=== PATIENT | female | born 1950 | race African-American/Black ===

== ENCOUNTER 2017-04-20 13:31 | Inpatient (IN) | payer MEDICARE, MEDICAID ==
[~2017-04-20] VITALS: Ht 160 cm; Wt 42.6 kg
[~2017-04-20 13:31] MED LIST: ACET-3161 PO; ALBU4TAB6 INH; FLUT1DIS3 IH; ONDA4TAB5 PO; PANCREASE; PERIACTIN PO; TIOT18CA3; TIOT18CA3 IH
[2017-04-20] MEDS ORDERED: SODIUM CHLORIDE 0.9% 1,000 ML IV ONE (14:04)
[2017-04-20] MEDS ORDERED: MORPHINE SULFATE 4 MG/ML CPJ (NOT FOR IM USE) IV ONE (16:00)
[2017-04-20 16:17] LABS: BASOPHILS % 0.7 % (0.0-2.0); EOSINOPHILS % 0.3 % (0.0-5.0); HEMATOCRIT. 33.6 % (36.0-48.0); HEMOGLOBIN. 11.6 g/dL (12.0-16.0); LYMPHOCYTES % 16.6 % (20.0-50.0); MEAN CORPUSCULAR HEMOGLOBIN 35.2 pg (28.0-32.0); MEAN CORPUSCULAR VOLUME 102.4 fL (81.0-99.0); MEAN PLATELET VOLUME 7.7 fl (7.4-10.4); MONOCYTES % 11.3 % (2.0-8.0); NEUTROPHILS % 71.1 % (40.0-76.0); PLATELET 234 x1000/uL (130-400); RED BLOOD CELL COUNT 3.29 mill/uL (4.2-5.4); RED CELL DISTRIBUTION WIDTH 14.8 % (11.6-14.6)
[2017-04-20 17:05] LABS: CARBON DIOXIDE 26 mEq/L (21-32); CHLORIDE 97 mEq/L (98-107)
[2017-04-20] MEDS ORDERED: KETOROLAC 30MG/ML VIAL IV ONE (18:15)
[2017-04-20 21:17] VITALS: BP 135/97
[2017-04-20 22:00] VITALS: BP 141/95
[2017-04-20] MEDS ORDERED: CLONIDINE 0.1MG TABLET PO PRN (22:30)
[2017-04-20] MEDS: HYDROMORPHONE HCL/PF 2MG/ML CPJ IV PRN (22:39)
[2017-04-20] MEDS: ONDANSETRON HCL 4MG/2ML VIAL IV PRN (23:00)
[2017-04-20] MEDS ORDERED: DIPHENHYDRAMINE 50MG/ML VIAL IM PRN (23:15)
[2017-04-21] VITALS: BP 96/62
[2017-04-21 00:03] LABS: CREATINE KINASE 64 IU/L (26-192); CREATINE KINASE MB FRACTION 0.8 ng/mL (0.5-3.6); TROPONIN I < 0.02 ng/mL (0.00-0.04)
[2017-04-21] MEDS: HYDROMORPHONE HCL/PF 2MG/ML CPJ IV PRN ×6 (02:39→22:54)
[2017-04-21 04:00] VITALS: BP 100/77
[2017-04-21] MEDS: ONDANSETRON HCL 4MG/2ML VIAL IV PRN ×4 (05:53→22:54)
[2017-04-21 07:25] VITALS: BP 93/60
[2017-04-21 07:34] LABS: LDL CHOLESTEROL 110 mg/dL (5-100)
[2017-04-21 07:37] LABS: CREATINE KINASE 62 IU/L (26-192); CREATINE KINASE MB FRACTION 0.8 ng/mL (0.5-3.6); HDL CHOLESTEROL 109 mg/dL (40-59); TROPONIN I < 0.02 ng/mL (0.00-0.04)
[2017-04-21 11:21] VITALS: BP 120/81
[2017-04-21] MEDS: DIPHENHYDRAMINE 50MG/ML VIAL IV PRN ×2 (11:26→16:56)
[2017-04-21 15:45] VITALS: BP 109/64
[2017-04-21 20:00] VITALS: BP 108/60
[2017-04-22] VITALS: BP 113/62
[2017-04-22] MEDS: HYDROMORPHONE HCL/PF 2MG/ML CPJ IV PRN ×3 (03:20→11:38)
[2017-04-22 04:00] VITALS: BP 123/70
[2017-04-22] MEDS: DIPHENHYDRAMINE 50MG/ML VIAL IV PRN ×2 (04:20→10:15)
[2017-04-22 07:45] VITALS: BP 106/73
[2017-04-22 11:23] VITALS: BP 103/71
[2017-04-22 11:40] VITALS: BP 103/71
== END 2017-04-22 14:10 | disposition home or self-care (01) | DRG 74 ==
LOC: ER 13:47 → 6WST 18:02 → CANRESERV 18:39 → ENRESERV 18:39 → 6WST 21:05
PROVIDERS: ADMIT Hospitalist; ATTEND Hospitalist
DX: G90.8 Other disorders of autonomic nervous system (principal); J44.9 Chronic obstructive pulmonary disease, unspecified; G62.9 Polyneuropathy, unspecified; R55 Syncope and collapse; E78.00 Pure hypercholesterolemia, unspecified; I10 Essential (primary) hypertension; R07.9 Chest pain, unspecified; G89.4 Chronic pain syndrome; I25.10 Atherosclerotic heart disease of native coronary artery without angina pectoris; Z96.649 Presence of unspecified artificial hip joint; F17.200 Nicotine dependence, unspecified, uncomplicated; Z85.42 Personal history of malignant neoplasm of other parts of uterus; Z90.710 Acquired absence of both cervix and uterus; M94.0 Chondrocostal junction syndrome [Tietze]
CPT/HCPCS: 36415; 70450; 71010; 72125; 80053; 80061; 82550; 82553; 84484; 85025; 93005; 96374; 99285; J1170; J1200; J2270; J2405; J7030

== ENCOUNTER 2017-05-17 16:53 | Inpatient (IN) | payer MEDICARE, MEDICAID ==
[~2017-05-17] VITALS: Ht 160 cm; Wt 42.2 kg
[2017-05-17] MEDS ORDERED: SODIUM CHLORIDE 0.9% 1,000 ML IV ONE (18:20)
[2017-05-17] MEDS ORDERED: ONDANSETRON HCL 4MG/2ML VIAL IV STA (18:20)
[2017-05-17] MEDS ORDERED: NITROGLYCERIN 0.4MG TABLET SL SL PRN ×2 (18:30→23:00)
[2017-05-17] MEDS ORDERED: DIPHENHYDRAMINE 50MG/ML VIAL IV ONE (18:45)
[2017-05-17] MEDS ORDERED: MORPHINE SULFATE 4 MG/ML CPJ (NOT FOR IM USE) IV ONE ×2 (18:45→22:30)
[2017-05-17] MEDS ORDERED: METRONIDAZOLE 500 MG PREMIX 100 ML IV ONE (20:00)
[2017-05-17 20:07] LABS: BASOPHILS % 0.4 % (0.0-2.0); EOSINOPHILS % 0.6 % (0.0-5.0); HEMATOCRIT. 28.3 % (36.0-48.0); HEMOGLOBIN. 9.6 g/dL (12.0-16.0); LYMPHOCYTES % 19.8 % (20.0-50.0); MEAN CORPUSCULAR HEMOGLOBIN 34.4 pg (28.0-32.0); MEAN CORPUSCULAR VOLUME 101.6 fL (81.0-99.0); MEAN PLATELET VOLUME 7.4 fl (7.4-10.4); MONOCYTES % 9.9 % (2.0-8.0); NEUTROPHILS % 69.3 % (40.0-76.0); PLATELET 205 x1000/uL (130-400); RED BLOOD CELL COUNT 2.79 mill/uL (4.2-5.4); RED CELL DISTRIBUTION WIDTH 14.9 % (11.6-14.6)
[2017-05-17 20:15] LABS: PROTHROMBIN TIME 10.7 sec (9.4-11.6)
[2017-05-17 20:17] LABS: CHLORIDE 111 mEq/L (98-107)
[2017-05-17 20:20] LABS: PARTIAL THROMBOPLASTIN TIME < 20.0 sec (23.4-31.0)
[2017-05-17 20:25] LABS: CARBON DIOXIDE 24 mEq/L (21-32)
[2017-05-17 20:29] LABS: TROPONIN I < 0.02 ng/mL (0.00-0.04)
[2017-05-17] MEDS ORDERED: ASPIRIN 325MG EC TABLET PO ONE (22:15)
[2017-05-17] MEDS ORDERED: ONDANSETRON HCL 4MG/2ML VIAL IV PRN (23:00)
[2017-05-17] MEDS ORDERED: ACETAMINOPHEN 325MG TABLET PO PRN (23:00)
[2017-05-17] MEDS ORDERED: CLONIDINE 0.1MG TABLET PO PRN (23:00)
[2017-05-17] MEDS ORDERED: DOCUSATE SODIUM 100MG CAPSULE PO PRN (23:00)
[2017-05-17] MEDS ORDERED: LORAZEPAM 0.5MG TABLET PO PRN (23:00)
[2017-05-17] MEDS ORDERED: MAGNESIUM/ALUMINUM HYDROXIDE/SIMETHICONE 30ML UDC PO PRN (23:00)
[2017-05-17] MEDS ORDERED: TRAMADOL 50MG TABLET PO PRN (23:00)
[2017-05-17] MEDS ORDERED: GUAIFENESIN 200MG/10ML SUGAR FREE UDC PO PRN (23:00)
[2017-05-17] MEDS ORDERED: IOHEXOL-350 100 ML BOTTLE ONE (23:36)
[2017-05-18 00:23] VITALS: BP 125/75
[2017-05-18 00:30] VITALS: BP 125/75
[2017-05-18] MEDS ORDERED: ZOLPIDEM TARTRATE 5MG TABLET PO PRN (00:39)
[2017-05-18] MEDS ORDERED: NA PHOS,M-B/NA PHOS,DI-BA ENEMA 118ML PR PRN (00:40)
[2017-05-18] MEDS: IPRATROPIUM/ALBUTEROL 0.5-3(2.5)MG/3ML NEB INH PRN ×2 (02:04→06:21)
[2017-05-18] MEDS: DIPHENHYDRAMINE 50MG/ML VIAL IV PRN ×2 (03:06→10:25)
[2017-05-18] MEDS: MORPHINE SULFATE 4 MG/ML CPJ (NOT FOR IM USE) IV PRN ×2 (03:17→10:02)
[2017-05-18 04:00] VITALS: BP 117/60
[2017-05-18 08:00] VITALS: BP 125/77
[2017-05-18] MEDS ORDERED: FAMOTIDINE 20MG/2ML VIAL IV SCH (09:00)
[2017-05-18] MEDS ORDERED: ASPIRIN 325MG EC TABLET PO SCH (09:00)
[2017-05-18] MEDS ORDERED: ENOXAPARIN 40MG/0.4ML SYR SUBCUT SCH (09:00)
[2017-05-18] MEDS ORDERED: METOPROLOL TARTRATE 25MG TABLET PO SCH (09:00)
[2017-05-18 10:10] LABS: CREATINE KINASE 58 IU/L (26-192); CREATINE KINASE MB FRACTION 0.7 ng/mL (0.5-3.6); TROPONIN I < 0.02 ng/mL (0.00-0.04)
[2017-05-18 11:31] VITALS: BP 128/77
== END 2017-05-18 13:50 | disposition home or self-care (01) | DRG 313 ==
LOC: ER 16:53 → EDBEDREQ 18:31 → ENRESERV 21:05 → SUPCPDRO 22:54 → 5WST 22:58 → EDBEDREQ 23:00 → EDBEDREQTM 23:00
PROVIDERS: ADMIT Internal Medicine; ATTEND Internal Medicine
DX: R07.89 Other chest pain (principal); I25.10 Atherosclerotic heart disease of native coronary artery without angina pectoris; E44.0 Moderate protein-calorie malnutrition; J44.9 Chronic obstructive pulmonary disease, unspecified; Z68.1 Body mass index [BMI] 19.9 or less, adult; D63.8 Anemia in other chronic diseases classified elsewhere; E78.00 Pure hypercholesterolemia, unspecified; Z96.649 Presence of unspecified artificial hip joint; I10 Essential (primary) hypertension; Z85.41 Personal history of malignant neoplasm of cervix uteri; Z86.718 Personal history of other venous thrombosis and embolism; Z88.5 Allergy status to narcotic agent; Z90.710 Acquired absence of both cervix and uterus; Z88.8 Allergy status to other drugs, medicaments and biological substances
CPT/HCPCS: 36415; 71045; 71275; 74176; 80053; 80061; 82550; 82553; 83036; 83690; 83880; 84484; 85025; 85610; 85730; 87015; 87045; 87427; 87449; 87493; 87804; 93005; 93970; 94640; 94664; 96365; 96375; 99285; J1200; J1650; J2270; J2405; J3490; J7030; J7620; Q9967

== ENCOUNTER 2018-04-22 08:32 | Inpatient (IN) | payer MEDICARE, MEDICAID ==
[~2018-04-22] VITALS: Ht 160 cm; Wt 45.4 kg
[2018-04-22] MEDS ORDERED: ONDANSETRON HCL 4MG/2ML INJ IV STA (09:21)
[2018-04-22] MEDS ORDERED: SODIUM CHLORIDE 0.9% 1,000 ML IV ONE (09:21)
[2018-04-22] MEDS ORDERED: METHYLPREDNISOLONE SOD SUCC 125 MG/2 ML VIAL IV STA (09:21)
[2018-04-22] MEDS ORDERED: IPRATROPIUM/ALBUTEROL 0.5-3(2.5)MG/3ML NEB HHN ONE (09:30)
[2018-04-22] MEDS ORDERED: MORPHINE SULFATE 10 MG/ML CPJ IV ONE (09:30)
[2018-04-22] MEDS ORDERED: LIDOCAINE HCL 1% 20ML VIAL (Pyxis) INJ ONE (11:09)
[2018-04-22 12:09] LABS: BASOPHILS % 0.5 % (0.0-2.0); EOSINOPHILS % 0.3 % (0.0-5.0); HEMATOCRIT. 36.1 % (36.0-48.0); HEMOGLOBIN. 12.2 g/dL (12.0-16.0); LYMPHOCYTES % 19.8 % (20.0-50.0); MEAN PLATELET VOLUME 7.5 fl (7.4-10.4); MONOCYTES % 9.2 % (2.0-8.0); NEUTROPHILS % 70.2 % (40.0-76.0); PLATELET 230 x1000/uL (130-400); RED BLOOD CELL COUNT 3.47 mill/uL (4.2-5.4); RED CELL DISTRIBUTION WIDTH 14.3 % (11.6-14.6)
[2018-04-22 12:12] LABS: CHLORIDE 102 mEq/L (98-107)
[2018-04-22 12:14] LABS: INR 1.1; PARTIAL THROMBOPLASTIN TIME 24.3 sec (23.4-31.0); PROTHROMBIN TIME 10.9 sec (9.1-11.1)
[2018-04-22 12:17] LABS: ETHANOL BLOOD < 10 mg/dL
[2018-04-22 13:27] LABS: CLARITY URINE CLOUDY (CLEAR); COLOR URINE YELLOW (YELLOW); KETONES URINE 2+ (NEGATIVE); LEUKOCYTE ESTERASE URINE 1+ (NEGATIVE); NITRITE URINE NEGATIVE (NEGATIVE); OCCULT BLOOD URINE 1+ (NEGATIVE); PROTEIN URINE 2+ (NEGATIVE); SPECIFIC GRAVITY URINE 1.016 (1.005-1.030); UROBILINOGEN URINE 0.2 E.U./dL (0.2-1.0)
[2018-04-22] MEDS ORDERED: ASPIRIN 81MG TABLET PO ONE (13:30)
[2018-04-22 13:44] LABS: METHADONE URINE SCREEN NEGATIVE (NEGATIVE); OPIATES URINE SCREEN PRESUMTIVE POSITIVE (NEGATIVE); PHENCYCLIDINE URINE SCREEN NEGATIVE (NEGATIVE)
[2018-04-22 13:45] LABS: *AMPHETAMINES SCREEN URINE NEGATIVE (NEGATIVE); *BARBITURATES SCREEN URINE NEGATIVE (NEGATIVE); *BENZODIAZEPINES SCREEN URINE NEGATIVE (NEGATIVE); *COCAINE SCREEN URINE NEGATIVE (NEGATIVE); CANNABINOID URINE SCREEN NEGATIVE (NEGATIVE)
[2018-04-22] MEDS ORDERED: IOHEXOL-350 100 ML BOTTLE ONE (15:01)
[2018-04-22] MEDS ORDERED: DOCUSATE SODIUM 100MG CAPSULE PO PRN (17:30)
[2018-04-22] MEDS ORDERED: MAGNESIUM/ALUMINUM HYDROXIDE/SIMETHICONE 30ML UDC PO PRN (17:30)
[2018-04-22] MEDS ORDERED: IPRATROPIUM/ALBUTEROL 0.5-3(2.5)MG/3ML NEB INH PRN (17:30)
[2018-04-22] MEDS ORDERED: ACETAMINOPHEN 325MG TABLET PO PRN (17:30)
[2018-04-22] MEDS ORDERED: NA PHOS,M-B/NA PHOS,DI-BA ENEMA 118ML PR PRN (17:30)
[2018-04-22] MEDS ORDERED: GUAIFENESIN 200MG/10ML SUGAR FREE UDC PO PRN (17:30)
[2018-04-22] MEDS ORDERED: CLONIDINE 0.1MG TABLET PO PRN (17:30)
[2018-04-22] MEDS ORDERED: ACETAMINOPHEN 650MG SUPP PR PRN (17:30)
[2018-04-22] MEDS ORDERED: DEXTROSE 50% WATER 50ML SYRINGE IV PRN ×2 (17:30→23:30)
[2018-04-22] MEDS ORDERED: LORAZEPAM 0.5MG TABLET PO PRN (17:30)
[2018-04-22 23:00] VITALS: BP 108/61
[2018-04-22] MEDS: BLOOD SUGAR DIAGNOSTIC STRIP TEST SCH (23:00)
[2018-04-23] VITALS (7 sets, daily range): BP systolic 96–113; BP diastolic 60–75
[2018-04-23] MEDS ORDERED: LEVOFLOXACIN 500MG PREMIX 100 ML IV SCH
[2018-04-23] MEDS: ONDANSETRON HCL 4MG/2ML INJ IV PRN ×2 (00:47→16:38)
[2018-04-23] MEDS: KETOROLAC 15MG/ML VIAL IV PRN ×2 (00:48→08:04)
[2018-04-23] MEDS: METRONIDAZOLE 500MG TABLET PO SCH ×4 (00:50→21:00)
[2018-04-23] MEDS: NICOTINE 21MG PATCH TD SCH (00:51)
[2018-04-23] MEDS: INSULIN LISPRO 100 UNITS/ML SUBCUT SCH ×5 (00:52→21:00)
[2018-04-23] MEDS: DIPHENHYDRAMINE 50MG/ML VIAL IV PRN ×5 (01:21→21:07)
[2018-04-23 02:10] LABS: CREATINE KINASE 98 IU/L (26-192)
[2018-04-23 02:11] LABS: CREATINE KINASE MB FRACTION 2.7 ng/mL (0.5-3.6)
[2018-04-23] MEDS: IPRATROPIUM/ALBUTEROL 0.5-3(2.5)MG/3ML NEB HHN SCH ×6 (04:28→23:40)
[2018-04-23 05:53] LABS: BASOPHILS % 0.1 % (0.0-2.0); HEMATOCRIT. 34.9 % (36.0-48.0); HEMOGLOBIN. 11.8 g/dL (12.0-16.0); LYMPHOCYTES % 10.7 % (20.0-50.0); MEAN CORPUSCULAR HEMOGLOBIN 35.4 pg (28.0-32.0); MEAN CORPUSCULAR VOLUME 104.2 fL (81.0-99.0); MEAN PLATELET VOLUME 8.3 fl (7.4-10.4); NEUTROPHILS % 77.2 % (40.0-76.0); PLATELET 215 x1000/uL (130-400); RED BLOOD CELL COUNT 3.35 mill/uL (4.2-5.4); RED CELL DISTRIBUTION WIDTH 14.3 % (11.6-14.6)
[2018-04-23] MEDS: BLOOD SUGAR DIAGNOSTIC STRIP TEST SCH ×4 (06:08→21:08)
[2018-04-23 06:52] LABS: CHLORIDE 102 mEq/L (98-107)
[2018-04-23 07:06] LABS: LDL CHOLESTEROL 93 mg/dL (5-100)
[2018-04-23 07:08] LABS: CREATINE KINASE 132 IU/L (26-192); CREATINE KINASE MB FRACTION 3.5 ng/mL (0.5-3.6)
[2018-04-23 07:09] LABS: HDL CHOLESTEROL 120 mg/dL (40-59); T4 FREE 0.86 ng/dL (0.76-1.46)
[2018-04-23] MEDS ORDERED: ENOXAPARIN 40MG/0.4ML SYR SUBCUT SCH (09:00)
[2018-04-23] MEDS: ASPIRIN 81MG EC TABLET PO SCH (09:19)
[2018-04-23] MEDS: BUDESONIDE 0.5MG/2ML NEB HHN SCH ×2 (13:15→20:11)
[2018-04-23] MEDS ORDERED: MORPHINE SULFATE 2 MG/ML CPJ (NOT FOR IM USE) IV PRN (15:44)
[2018-04-23] MEDS ORDERED: MORPHINE SULFATE 10MG/5ML ORAL SOLN UDC PO PRN (16:00)
[2018-04-23] MEDS: HYDROMORPHONE HCL/PF 2MG/ML CPJ IV PRN ×2 (16:38→20:57)
[2018-04-24] VITALS (7 sets, daily range): BP systolic 87–134; BP diastolic 56–104
[2018-04-24] MEDS ORDERED: LEVOFLOXACIN 250MG PREMIX 50 ML IV SCH
[2018-04-24] MEDS: NICOTINE 21MG PATCH TD SCH ×2 (00:23→23:17)
[2018-04-24] MEDS: ONDANSETRON HCL 4MG/2ML INJ IV PRN ×2 (03:22→18:20)
[2018-04-24] MEDS: HYDROMORPHONE HCL/PF 2MG/ML CPJ IV PRN ×5 (03:22→22:41)
[2018-04-24] MEDS: DIPHENHYDRAMINE 50MG/ML VIAL IV PRN ×5 (03:32→22:40)
[2018-04-24] MEDS: IPRATROPIUM/ALBUTEROL 0.5-3(2.5)MG/3ML NEB HHN SCH ×6 (04:02→23:37)
[2018-04-24] MEDS: METRONIDAZOLE 500MG TABLET PO SCH ×3 (06:16→22:19)
[2018-04-24] MEDS: BLOOD SUGAR DIAGNOSTIC STRIP TEST SCH ×4 (06:26→21:35)
[2018-04-24] MEDS: INSULIN LISPRO 100 UNITS/ML SUBCUT SCH ×4 (06:27→21:00)
[2018-04-24] MEDS: BUDESONIDE 0.5MG/2ML NEB HHN SCH ×2 (08:00→20:12)
[2018-04-24] MEDS: ENOXAPARIN 30MG/0.3ML SYR SUBCUT SCH (08:31)
[2018-04-24] MEDS: ASPIRIN 81MG EC TABLET PO SCH (08:31)
[2018-04-24] MEDS ORDERED: LORAZEPAM 1MG TABLET PO PRN (17:30)
[2018-04-24] MEDS ORDERED: VANCOMYCIN HCL 1 GM/VIAL PO SCH (18:00)
[2018-04-24] MEDS: VANCOMYCIN HCL 1000 MG/20 ML ORAL PO SCH ×2 (18:19→23:17)
[2018-04-24] MEDS ORDERED: DEXT 5%/0.45% NACL 1000ML 1,000 ML IV SCH (20:45)
[2018-04-24 20:55] LABS: HEMATOCRIT 30.3 % (36.0-48.0); HEMOGLOBIN 10.1 g/dL (12.0-16.0); MEAN CORPUSCULAR HEMOGLOBIN 34.9 pg (28.0-32.0); PLATELET 178 x1000/uL (130-400); RED BLOOD CELL COUNT 2.89 mill/uL (4.2-5.4); RED CELL DISTRIBUTION WIDTH 14.3 % (11.6-14.6)
[2018-04-24 21:02] LABS: CHLORIDE 102 mEq/L (98-107)
[2018-04-25] VITALS: BP 118/68
[2018-04-25] MEDS: DIPHENHYDRAMINE 50MG/ML VIAL IV PRN ×4 (03:29→17:19)
[2018-04-25] MEDS: ONDANSETRON HCL 4MG/2ML INJ IV PRN ×2 (03:29→13:05)
[2018-04-25] MEDS: HYDROMORPHONE HCL/PF 2MG/ML CPJ IV PRN ×4 (03:30→17:20)
[2018-04-25 04:00] VITALS: BP 131/46
[2018-04-25] MEDS: IPRATROPIUM/ALBUTEROL 0.5-3(2.5)MG/3ML NEB HHN SCH ×4 (05:22→15:36)
[2018-04-25] MEDS: INSULIN LISPRO 100 UNITS/ML SUBCUT SCH ×3 (05:51→17:15)
[2018-04-25] MEDS: BLOOD SUGAR DIAGNOSTIC STRIP TEST SCH ×3 (05:51→16:45)
[2018-04-25] MEDS: VANCOMYCIN HCL 1000 MG/20 ML ORAL PO SCH ×3 (06:00→18:00)
[2018-04-25] MEDS: METRONIDAZOLE 500MG TABLET PO SCH ×2 (06:00→13:16)
[2018-04-25] MEDS: BUDESONIDE 0.5MG/2ML NEB HHN SCH (07:54)
[2018-04-25 08:00] VITALS: BP 95/57
[2018-04-25] MEDS: ASPIRIN 81MG EC TABLET PO SCH (08:53)
[2018-04-25] MEDS: ENOXAPARIN 30MG/0.3ML SYR SUBCUT SCH (08:54)
[2018-04-25 12:00] VITALS: BP 93/59
[2018-04-25] MEDS ORDERED: SIMETHICONE 80MG TABLET CHEW PO PRN (14:45)
[2018-04-25 16:00] VITALS: BP 94/53
[2018-04-25 17:54] VITALS: BP 103/56
== END 2018-04-25 18:47 | disposition home or self-care (01) | DRG 371 ==
LOC: ER 08:32 → 5WST 09:25 → EDBEDREQ 13:50 → ENRESERV 19:39
PROVIDERS: ADMIT Internal Medicine; ATTEND Internal Medicine
PROC: B54MZZA Ultrasonography of Right Upper Extremity Veins, Guidance (ICD-10-PCS; principal; 2018-04-22)
PROC: 05HY33Z Insertion of Infusion Device into Upper Vein, Percutaneous Approach (ICD-10-PCS; 2018-04-22)
DX: A04.72 Enterocolitis due to Clostridium difficile, not specified as recurrent (principal); I50.33 Acute on chronic diastolic (congestive) heart failure; N39.0 Urinary tract infection, site not specified; I31.3 Pericardial effusion (noninflammatory); M94.0 Chondrocostal junction syndrome [Tietze]; E16.2 Hypoglycemia, unspecified; E78.00 Pure hypercholesterolemia, unspecified; F17.210 Nicotine dependence, cigarettes, uncomplicated; F41.9 Anxiety disorder, unspecified; J43.9 Emphysema, unspecified; I70.0 Atherosclerosis of aorta; E27.8 Other specified disorders of adrenal gland; N28.1 Cyst of kidney, acquired; E05.10 Thyrotoxicosis with toxic single thyroid nodule without thyrotoxic crisis or storm; G89.29 Other chronic pain; I27.21 Secondary pulmonary arterial hypertension; K76.0 Fatty (change of) liver, not elsewhere classified; M85.80 Other specified disorders of bone density and structure, unspecified site; Z96.643 Presence of artificial hip joint, bilateral; Z60.2 Problems related to living alone; Z53.29 Procedure and treatment not carried out because of patient's decision for other reasons; Z86.718 Personal history of other venous thrombosis and embolism; Z90.710 Acquired absence of both cervix and uterus; Z88.6 Allergy status to analgesic agent; Z88.8 Allergy status to other drugs, medicaments and biological substances; Z79.899 Other long term (current) drug therapy; Z85.9 Personal history of malignant neoplasm, unspecified; Z71.6 Tobacco abuse counseling
CPT/HCPCS: 36415; 36569; 71045; 71275; 73521; 74018; 76700; 76937; 78582; 80048; 80061; 80305; 82550; 82553; 82962; 83036; 83880; 84439; 84443; 84484; 85027; 87015; 87045; 87427; 87449; 87493; 93005; 93970; 94640; 96361; 96374; 96375; 97161; 99285; A9558; C1725; C1769; C1892; G0482; J1170; J1200; J1650; J1815; J1885; J1956; J2270; J2405; J2930; J3370; J3490; J7030; J7050; J7620; J7626; Q9967

== ENCOUNTER 2018-05-23 15:06 | Inpatient (IN) | payer MEDICARE, MEDICAID ==
[~2018-05-23] VITALS: Ht 157.5 cm; Wt 44.9 kg
[2018-05-23] MEDS ORDERED: SODIUM CHLORIDE 0.9% 500 ML IV ONE (21:22)
[2018-05-23] MEDS ORDERED: ONDANSETRON HCL 4MG/2ML INJ IV STA (21:22)
[2018-05-23] MEDS ORDERED: NITROGLYCERIN 0.4MG TABLET SL SL ONE (22:45)
[2018-05-24 00:08] LABS: EOSINOPHILS % 1.5 % (0.0-5.0); HEMATOCRIT. 34.6 % (36.0-48.0); HEMOGLOBIN. 11.4 g/dL (12.0-16.0); LYMPHOCYTES % 34.8 % (20.0-50.0); MEAN CORPUSCULAR HEMOGLOBIN 34.2 pg (28.0-32.0); MEAN CORPUSCULAR VOLUME 103.9 fL (81.0-99.0); MEAN PLATELET VOLUME 7.2 fl (7.4-10.4); MONOCYTES % 10.8 % (2.0-8.0); NEUTROPHILS % 51.9 % (40.0-76.0); PLATELET 276 x1000/uL (130-400); RED BLOOD CELL COUNT 3.33 mill/uL (4.2-5.4); RED CELL DISTRIBUTION WIDTH 15.2 % (11.6-14.6)
[2018-05-24 00:11] LABS: CHLORIDE 105 mEq/L (98-107)
[2018-05-24 00:16] LABS: INR 1.1; PROTHROMBIN TIME 10.7 sec (9.1-11.1)
[2018-05-24] MEDS ORDERED: LORAZEPAM 1MG TABLET PO NR (03:15)
[2018-05-24] MEDS ORDERED: KETOROLAC 15MG/ML VIAL IV NR (04:15)
[2018-05-24 08:45] VITALS: BP 130/90
[2018-05-24] MEDS ORDERED: HYDROCODONE/ACETAMINOPHEN 5/325MG TABLET PO PRN (10:30)
[2018-05-24] MEDS ORDERED: NITROGLYCERIN 0.4MG TABLET SL SL PRN (12:00)
[2018-05-24] MEDS ORDERED: MORPHINE SULFATE 4 MG/ML CPJ (NOT FOR IM USE) IV PRN ×2 (12:30→12:45)
[2018-05-24 14:00] VITALS: BP 129/75
[2018-05-24] MEDS ORDERED: BUDE6HFA INH (15:16)
[2018-05-24] MEDS ORDERED: ALBU05 NEB (15:16)
[2018-05-24 16:00] VITALS: BP 129/75
[2018-05-24] MEDS ORDERED: HYDROCODONE/ACETAMINOPHEN 10/325MG TABLET PO PRN (16:30)
[2018-05-24] MEDS: ONDANSETRON HCL 4MG/2ML INJ IV PRN ×2 (17:50→22:10)
[2018-05-24] MEDS: HYDROMORPHONE HCL/PF 2MG/ML CPJ IV PRN ×2 (17:50→22:10)
[2018-05-24] MEDS: DIPHENHYDRAMINE 50MG/ML VIAL IM PRN (19:58)
[2018-05-24] MEDS: CARVEDILOL 3.125 MG TABLET PO SCH (19:59)
[2018-05-25] VITALS: BP_SYST 103; BP_SYST 108; BP_DIAS 60; BP_DIAS 73
[2018-05-25] MEDS: ONDANSETRON HCL 4MG/2ML INJ IV PRN ×5 (02:17→21:20)
[2018-05-25] MEDS: HYDROMORPHONE HCL/PF 2MG/ML CPJ IV PRN ×5 (02:24→21:21)
[2018-05-25] MEDS: DIPHENHYDRAMINE 50MG/ML VIAL IM PRN (02:29)
[2018-05-25 04:00] VITALS: BP 108/73
[2018-05-25 08:00] VITALS: BP 109/79
[2018-05-25] MEDS: ASPIRIN 81MG EC TABLET PO SCH (08:22)
[2018-05-25] MEDS: ENOXAPARIN 30MG/0.3ML SYR SUBCUT SCH (08:24)
[2018-05-25] MEDS: CARVEDILOL 3.125 MG TABLET PO SCH ×2 (09:00→21:00)
[2018-05-25] MEDS ORDERED: ENOXAPARIN 40MG/0.4ML SYR SUBCUT SCH (09:00)
[2018-05-25] MEDS: DIPHENHYDRAMINE 50MG/ML VIAL IV PRN ×2 (10:43→19:33)
[2018-05-25 12:43] VITALS: BP 102/65
[2018-05-25 15:54] VITALS: BP 129/66
[2018-05-25 18:10] LABS: HEMATOCRIT 34.9 % (36.0-48.0); HEMOGLOBIN 11.7 g/dL (12.0-16.0); MEAN CORPUSCULAR HEMOGLOBIN 34.1 pg (28.0-32.0); MEAN CORPUSCULAR VOLUME 101.8 fL (81.0-99.0); PLATELET 294 x1000/uL (130-400); RED BLOOD CELL COUNT 3.43 mill/uL (4.2-5.4); RED CELL DISTRIBUTION WIDTH 14.6 % (11.6-14.6)
[2018-05-25 18:12] LABS: CHLORIDE 101 mEq/L (98-107)
[2018-05-25 20:00] VITALS: BP 97/67
[2018-05-26] VITALS (7 sets, daily range): BP systolic 92–132; BP diastolic 60–91
[2018-05-26] MEDS: DIPHENHYDRAMINE 50MG/ML VIAL IV PRN ×3 (01:16→14:34)
[2018-05-26] MEDS: ONDANSETRON HCL 4MG/2ML INJ IV PRN ×4 (01:53→13:18)
[2018-05-26] MEDS: HYDROMORPHONE HCL/PF 2MG/ML CPJ IV PRN ×5 (01:54→17:56)
[2018-05-26] MEDS: ASPIRIN 81MG EC TABLET PO SCH (08:47)
[2018-05-26] MEDS: ENOXAPARIN 30MG/0.3ML SYR SUBCUT SCH (08:49)
[2018-05-26] MEDS: CARVEDILOL 3.125 MG TABLET PO SCH (09:00)
== END 2018-05-26 19:15 | disposition home or self-care (01) | DRG 206 ==
LOC: ER 15:06 → 7WST 05-24 04:04 → ENRESERV 05-24 07:59 → 7WST 05-25 02:07
PROVIDERS: ADMIT Internal Medicine; ATTEND Internal Medicine
DX: M94.0 Chondrocostal junction syndrome [Tietze] (principal); E78.00 Pure hypercholesterolemia, unspecified; F17.200 Nicotine dependence, unspecified, uncomplicated; F41.9 Anxiety disorder, unspecified; G89.29 Other chronic pain; J44.9 Chronic obstructive pulmonary disease, unspecified; Z96.649 Presence of unspecified artificial hip joint; M19.90 Unspecified osteoarthritis, unspecified site; Z90.710 Acquired absence of both cervix and uterus; W18.39XA Other fall on same level, initial encounter; Z86.718 Personal history of other venous thrombosis and embolism; Z88.5 Allergy status to narcotic agent; Z80.8 Family history of malignant neoplasm of other organs or systems; Y93.A3 Activity, aerobic and step exercise; Y92.89 Other specified places as the place of occurrence of the external cause; Y99.8 Other external cause status
CPT/HCPCS: 36415; 71045; 71111; 73523; 78582; 80048; 83880; 84443; 84484; 85027; 93005; 93306; 93970; 96374; 99285; A9558; J1170; J1200; J1650; J1885; J2405; J7040

== ENCOUNTER 2018-08-10 07:37 | Emergency (ER) | payer MEDICARE, MEDICAID ==
[~2018-08-10] VITALS: Ht 160 cm; Wt 42.0 kg
[~2018-08-10 07:37] MED LIST changes: -ACET-3161 PO; +ALBU05 NEB; -ALBU4TAB6 INH; +BUDE6HFA INH; -FLUT1DIS3 IH; -ONDA4TAB5 PO; -PANCREASE; -PERIACTIN PO; -TIOT18CA3; -TIOT18CA3 IH
[2018-08-10] MEDS ORDERED: KETOROLAC 30MG/ML VIAL IV STA (08:23)
[2018-08-10] MEDS ORDERED: SODIUM CHLORIDE 0.9% 1,000 ML IV ONE (08:23)
[2018-08-10 08:58] LABS: BASOPHILS % 0.3 % (0.0-2.0); EOSINOPHILS % 0.2 % (0.0-5.0); HEMATOCRIT. 37.4 % (36.0-48.0); HEMOGLOBIN. 12.4 g/dL (12.0-16.0); LYMPHOCYTES % 26.6 % (20.0-50.0); MEAN CORPUSCULAR HEMOGLOBIN 34.1 pg (28.0-32.0); MEAN PLATELET VOLUME 6.9 fl (7.4-10.4); MONOCYTES % 6.8 % (2.0-8.0); NEUTROPHILS % 66.1 % (40.0-76.0); PLATELET 235 x1000/uL (130-400); RED BLOOD CELL COUNT 3.63 mill/uL (4.2-5.4); RED CELL DISTRIBUTION WIDTH 17.3 % (11.6-14.6)
[2018-08-10 09:03] LABS: CHLORIDE 112 mEq/L (98-107); PARTIAL THROMBOPLASTIN TIME 23.8 sec (23.4-31.0); PROTHROMBIN TIME 10.4 sec (9.6-11.0)
[2018-08-10 09:08] LABS: ETHANOL BLOOD < 10 mg/dL
[2018-08-10 10:25] VITALS: BP 120/75
== END 2018-08-10 10:50 | disposition home or self-care (01) ==
LOC: ER 07:37
DX: R07.89 Other chest pain (principal); K62.5 Hemorrhage of anus and rectum; K64.4 Residual hemorrhoidal skin tags; F17.200 Nicotine dependence, unspecified, uncomplicated; Z96.649 Presence of unspecified artificial hip joint; Z90.710 Acquired absence of both cervix and uterus; Z98.890 Other specified postprocedural states; Z88.6 Allergy status to analgesic agent; Z88.1 Allergy status to other antibiotic agents; Z88.8 Allergy status to other drugs, medicaments and biological substances; Z79.899 Other long term (current) drug therapy
CPT/HCPCS: 36415; 71045; 80053; 80307; 80320; 80329; 83690; 83880; 84484; 85025; 85610; 85730; 93005; 99284; J1885; J7030; G0480

== ENCOUNTER 2018-09-23 07:40 | Inpatient (IN) | payer MEDICARE, MEDICAID ==
[~2018-09-23] VITALS: Ht 152.9 cm; Wt 44.9 kg
[2018-09-23] MEDS ORDERED: NITROGLYCERIN OINT 1GM/INCH UDPKT TD ONE (08:45)
[2018-09-23] MEDS ORDERED: ASPIRIN 325MG EC TABLET PO ONE (08:45)
[2018-09-23 09:01] LABS: BASOPHILS % 0.7 % (0.0-2.0); EOSINOPHILS % 0.6 % (0.0-5.0); HEMATOCRIT. 33.5 % (36.0-48.0); HEMOGLOBIN. 11.3 g/dL (12.0-16.0); LYMPHOCYTES % 24.8 % (20.0-50.0); MEAN CORPUSCULAR HEMOGLOBIN 34.7 pg (28.0-32.0); MEAN CORPUSCULAR VOLUME 102.9 fL (81.0-99.0); MEAN PLATELET VOLUME 7.4 fl (7.4-10.4); MONOCYTES % 7.2 % (2.0-8.0); NEUTROPHILS % 66.7 % (40.0-76.0); PLATELET 292 x1000/uL (130-400); RED BLOOD CELL COUNT 3.26 mill/uL (4.2-5.4); RED CELL DISTRIBUTION WIDTH 15.7 % (11.6-14.6)
[2018-09-23 09:06] LABS: CHLORIDE 108 mEq/L (98-107)
[2018-09-23 09:10] LABS: D-DIMER 0.94 mg/L FEU (<0.50)
[2018-09-23] MEDS ORDERED: IOHEXOL-350 100 ML BOTTLE ONE (09:46)
[2018-09-23] MEDS ORDERED: ACETAMINOPHEN 325MG TABLET PO PRN (16:00)
[2018-09-23] MEDS ORDERED: GUAIFENESIN 200MG/10ML SUGAR FREE UDC PO PRN (16:00)
[2018-09-23] MEDS ORDERED: IPRATROPIUM/ALBUTEROL 0.5-3(2.5)MG/3ML NEB INH PRN (16:00)
[2018-09-23] MEDS ORDERED: MAGNESIUM HYDROXIDE 400MG/5ML 30ML UDC PO PRN (16:00)
[2018-09-23] MEDS ORDERED: LORAZEPAM 0.5MG TABLET PO PRN (16:00)
[2018-09-23] MEDS ORDERED: KETOROLAC 30MG/ML VIAL IV PRN (16:11)
[2018-09-23 16:54] LABS: CANNABINOID URINE SCREEN NEGATIVE (NEGATIVE)
[2018-09-23 16:55] LABS: *AMPHETAMINES SCREEN URINE NEGATIVE (NEGATIVE); *BARBITURATES SCREEN URINE NEGATIVE (NEGATIVE); *BENZODIAZEPINES SCREEN URINE NEGATIVE (NEGATIVE); *COCAINE SCREEN URINE NEGATIVE (NEGATIVE); METHADONE URINE SCREEN NEGATIVE (NEGATIVE); OPIATES URINE SCREEN PRESUMTIVE POSITIVE (NEGATIVE); PHENCYCLIDINE URINE SCREEN NEGATIVE (NEGATIVE)
[2018-09-23 18:00] VITALS: BP 118/83
[2018-09-23] MEDS ORDERED: ENOXAPARIN 30MG/0.3ML SYR SUBCUT SCH (18:00)
[2018-09-23 19:03] VITALS: BP 118/83
[2018-09-23] MEDS ORDERED: TEMAZEPAM 15MG CAPSULE PO PRN (21:00)
[2018-09-23] MEDS ORDERED: FAMOTIDINE 20MG TABLET PO SCH (21:00)
[2018-09-23] MEDS: SODIUM CHLORIDE 0.9% INJ 3ML FLUSH IVF SCH (21:37)
[2018-09-23] MEDS: DIPHENHYDRAMINE 50MG/ML VIAL IV PRN (22:01)
[2018-09-23] MEDS ORDERED: TYLENOL CODEINE PO (23:08)
[2018-09-24] MEDS: BUDESONIDE 0.5MG/2ML NEB HHN SCH ×3 (01:23→20:38)
[2018-09-24] MEDS: IPRATROPIUM/ALBUTEROL 0.5-3(2.5)MG/3ML NEB HHN SCH ×6 (01:24→20:37)
[2018-09-24 04:00] VITALS: BP 110/81
[2018-09-24] MEDS: DIPHENHYDRAMINE 50MG/ML VIAL IV PRN ×4 (04:05→20:28)
[2018-09-24] MEDS: SODIUM CHLORIDE 0.9% INJ 3ML FLUSH IVF SCH ×3 (05:19→21:19)
[2018-09-24] MEDS ORDERED: ASPIRIN 81MG EC TABLET PO SCH (09:00)
[2018-09-24 09:30] VITALS: BP 96/56
[2018-09-24] MEDS: ONDANSETRON HCL 4MG/2ML INJ IV PRN ×3 (11:25→20:00)
[2018-09-24 11:58] VITALS: BP 110/77
[2018-09-24] MEDS: HYDROMORPHONE HCL/PF 2MG/ML CPJ IV PRN ×3 (12:03→20:01)
[2018-09-24 12:33] VITALS: BP 107/77
[2018-09-24 15:58] LABS: BASOPHILS % 0.9 % (0.0-2.0); EOSINOPHILS % 0.5 % (0.0-5.0); HEMATOCRIT. 33.6 % (36.0-48.0); HEMOGLOBIN. 11.1 g/dL (12.0-16.0); LYMPHOCYTES % 27.7 % (20.0-50.0); MEAN CORPUSCULAR HEMOGLOBIN 34.8 pg (28.0-32.0); MEAN CORPUSCULAR VOLUME 104.9 fL (81.0-99.0); MEAN PLATELET VOLUME 7.8 fl (7.4-10.4); MONOCYTES % 8.6 % (2.0-8.0); NEUTROPHILS % 62.3 % (40.0-76.0); PLATELET 283 x1000/uL (130-400); RED BLOOD CELL COUNT 3.21 mill/uL (4.2-5.4); RED CELL DISTRIBUTION WIDTH 16.1 % (11.6-14.6)
[2018-09-24] MEDS ORDERED: LORAZEPAM 0.5MG TABLET PO PRN (16:00)
[2018-09-24 16:03] LABS: LDL CHOLESTEROL 106 mg/dL (5-100)
[2018-09-24 16:05] LABS: HDL CHOLESTEROL 97 mg/dL (40-59)
[2018-09-24 16:19] VITALS: BP 117/70
[2018-09-24 17:13] LABS: CHLORIDE 108 mEq/L (98-107)
[2018-09-24] MEDS: OMEPRAZOLE 20MG CAPSULE EXTENDED RELEASE PO SCH (17:54)
[2018-09-24 20:00] VITALS: BP 122/77
[2018-09-25] VITALS (7 sets, daily range): BP systolic 116–162; BP diastolic 71–99
[2018-09-25] MEDS: HYDROMORPHONE HCL/PF 2MG/ML CPJ IV PRN ×7 (00:06→21:29)
[2018-09-25] MEDS: ONDANSETRON HCL 4MG/2ML INJ IV PRN ×5 (00:06→21:15)
[2018-09-25] MEDS: DIPHENHYDRAMINE 50MG/ML VIAL IV PRN ×5 (00:22→21:17)
[2018-09-25] MEDS: IPRATROPIUM/ALBUTEROL 0.5-3(2.5)MG/3ML NEB HHN SCH ×4 (01:26→21:28)
[2018-09-25] MEDS: SODIUM CHLORIDE 0.9% INJ 3ML FLUSH IVF SCH ×3 (06:44→22:00)
[2018-09-25] MEDS: OMEPRAZOLE 20MG CAPSULE EXTENDED RELEASE PO SCH ×2 (08:16→16:17)
[2018-09-25 09:48] LABS: HEMATOCRIT 29.9 % (36.0-48.0); MEAN CORPUSCULAR HEMOGLOBIN 34.6 pg (28.0-32.0); MEAN CORPUSCULAR VOLUME 103.6 fL (81.0-99.0); PLATELET 290 x1000/uL (130-400); RED BLOOD CELL COUNT 2.88 mill/uL (4.2-5.4)
[2018-09-25 10:02] LABS: CHLORIDE 107 mEq/L (98-107)
[2018-09-25] MEDS: BUDESONIDE 0.5MG/2ML NEB HHN SCH ×2 (10:12→21:27)
[2018-09-25] MEDS ORDERED: LACTULOSE 20G/30ML UDC PO SCH (10:45)
[2018-09-25] MEDS: DOCUSATE SODIUM 100MG CAPSULE PO SCH ×2 (12:08→16:17)
[2018-09-25] MEDS ORDERED: SIMETHICONE 80MG TABLET CHEW PO NR (16:00)
[2018-09-26 00:13] VITALS: BP 108/71
[2018-09-26 01:08] VITALS: BP 150/93
[2018-09-26] MEDS: ONDANSETRON HCL 4MG/2ML INJ IV PRN ×2 (01:16→05:46)
[2018-09-26] MEDS: HYDROMORPHONE HCL/PF 2MG/ML CPJ IV PRN ×3 (01:16→10:00)
[2018-09-26] MEDS: DIPHENHYDRAMINE 50MG/ML VIAL IV PRN ×2 (01:17→05:46)
[2018-09-26] MEDS: IPRATROPIUM/ALBUTEROL 0.5-3(2.5)MG/3ML NEB HHN SCH ×4 (02:00→21:05)
[2018-09-26 04:23] VITALS: BP 109/73
[2018-09-26] MEDS: SODIUM CHLORIDE 0.9% INJ 3ML FLUSH IVF SCH ×3 (07:03→22:00)
[2018-09-26 07:10] LABS: MEAN CORPUSCULAR HEMOGLOBIN 34.2 pg (28.0-32.0); MEAN CORPUSCULAR VOLUME 104.2 fL (81.0-99.0); PLATELET 307 x1000/uL (130-400); RED CELL DISTRIBUTION WIDTH 15.9 % (11.6-14.6)
[2018-09-26 07:17] LABS: CHLORIDE 102 mEq/L (98-107)
[2018-09-26] MEDS: BUDESONIDE 0.5MG/2ML NEB HHN SCH ×2 (07:35→21:05)
[2018-09-26 07:43] LABS: HEMATOCRIT 36.5 % (36.0-48.0)
[2018-09-26 08:33] VITALS: BP 127/78
[2018-09-26] MEDS: OMEPRAZOLE 20MG CAPSULE EXTENDED RELEASE PO SCH ×2 (10:00→17:00)
[2018-09-26] MEDS: DOCUSATE SODIUM 100MG CAPSULE PO SCH ×2 (10:00→17:00)
[2018-09-26 12:38] VITALS: BP 124/83
[2018-09-26] MEDS ORDERED: HYDROCODONE/APAP 7.5/325MG 1 TAB TABLET PO PRN (17:15)
[2018-09-26 20:00] VITALS: BP 118/85
[2018-09-27] MEDS: IPRATROPIUM/ALBUTEROL 0.5-3(2.5)MG/3ML NEB HHN SCH ×2 (02:40→05:45)
[2018-09-27 04:00] VITALS: BP 119/73
[2018-09-27] MEDS: SODIUM CHLORIDE 0.9% INJ 3ML FLUSH IVF SCH (05:46)
[2018-09-27] MEDS: ONDANSETRON HCL 4MG/2ML INJ IV PRN (08:38)
[2018-09-27] MEDS: OMEPRAZOLE 20MG CAPSULE EXTENDED RELEASE PO SCH (08:38)
[2018-09-27 08:39] VITALS: BP 119/73
[2018-09-27] MEDS: DOCUSATE SODIUM 100MG CAPSULE PO SCH (09:00)
[2018-09-27] MEDS: BUDESONIDE 0.5MG/2ML NEB HHN SCH (09:53)
== END 2018-09-27 12:55 | disposition left against medical advice (07) | DRG 191 ==
LOC: ER 07:40 → 6WST 10:05 → EDBEDREQ 10:08 → ENRESERV 16:22 → 6WST 17:54
PROVIDERS: ADMIT Internal Medicine; ATTEND Internal Medicine
DX: J44.1 Chronic obstructive pulmonary disease with (acute) exacerbation (principal); K92.2 Gastrointestinal hemorrhage, unspecified; D68.59 Other primary thrombophilia; F11.20 Opioid dependence, uncomplicated; K21.9 Gastro-esophageal reflux disease without esophagitis; R07.89 Other chest pain; D53.9 Nutritional anemia, unspecified; Z53.21 Procedure and treatment not carried out due to patient leaving prior to being seen by health care provider; E86.0 Dehydration; Z96.643 Presence of artificial hip joint, bilateral; I10 Essential (primary) hypertension; I25.10 Atherosclerotic heart disease of native coronary artery without angina pectoris; F17.210 Nicotine dependence, cigarettes, uncomplicated; M19.90 Unspecified osteoarthritis, unspecified site; I25.2 Old myocardial infarction; E78.5 Hyperlipidemia, unspecified; F41.1 Generalized anxiety disorder; K56.41 Fecal impaction; Z86.711 Personal history of pulmonary embolism; Z85.41 Personal history of malignant neoplasm of cervix uteri; Z86.718 Personal history of other venous thrombosis and embolism; Z88.6 Allergy status to analgesic agent; Z88.4 Allergy status to anesthetic agent; Z90.710 Acquired absence of both cervix and uterus
CPT/HCPCS: 36415; 71045; 71275; 74176; 80048; 80061; 80305; 82270; 83880; 84484; 85027; 85379; 93005; 93970; 94640; 96372; 96374; 99285; C1893; J1170; J1200; J1650; J1885; J2405; J7620; J7626; Q9967

== ENCOUNTER 2018-10-27 07:26 | Emergency (ER) | payer MEDICARE, MEDICAID ==
[~2018-10-27] VITALS: Ht 160 cm; Wt 44.0 kg
[~2018-10-27 07:26] MED LIST changes: +TYLENOL CODEINE PO
[2018-10-27 09:47] LABS: BASOPHILS % 0.5 % (0.0-2.0); EOSINOPHILS % 0.4 % (0.0-5.0); HEMATOCRIT. 31.7 % (36.0-48.0); HEMOGLOBIN. 10.7 g/dL (12.0-16.0); LYMPHOCYTES % 11.1 % (20.0-50.0); MEAN PLATELET VOLUME 7.6 fl (7.4-10.4); MONOCYTES % 8.7 % (2.0-8.0); NEUTROPHILS % 79.3 % (40.0-76.0); PLATELET 311 x1000/uL (130-400); RED BLOOD CELL COUNT 3.04 mill/uL (4.2-5.4); RED CELL DISTRIBUTION WIDTH 16.4 % (11.6-14.6)
[2018-10-27 09:51] LABS: CHLORIDE 101 mEq/L (98-107)
[2018-10-27 09:55] LABS: PROTHROMBIN TIME 10.3 sec (9.6-11.0)
[2018-10-27] MEDS ORDERED: ASPIRIN 81MG TABLET PO ONE (10:30)
[2018-10-27] MEDS ORDERED: ONDANSETRON HCL 4MG/2ML INJ IV ONE (10:30)
[2018-10-27 11:32] VITALS: BP 138/84
== END 2018-10-27 12:16 | disposition home or self-care (01) ==
LOC: ER 07:26
DX: R07.89 Other chest pain (principal); R60.0 Localized edema; J44.9 Chronic obstructive pulmonary disease, unspecified; I25.10 Atherosclerotic heart disease of native coronary artery without angina pectoris; I25.2 Old myocardial infarction; Z85.41 Personal history of malignant neoplasm of cervix uteri; Z90.710 Acquired absence of both cervix and uterus; Z96.649 Presence of unspecified artificial hip joint; Z86.718 Personal history of other venous thrombosis and embolism
CPT/HCPCS: 36415; 71045; 80053; 83880; 84484; 85025; 85610; 93005; 93970; 96374; 99284; J2405

== ENCOUNTER 2019-01-21 07:12 | Emergency (ER) | payer MEDICARE, MEDICAID ==
[~2019-01-21] VITALS: Ht 160 cm; Wt 44.0 kg
[2019-01-21] MEDS ORDERED: ACETAMINOPHEN WITH CODEINE 300/30MG TABLET PO STA (07:49)
[2019-01-21 08:32] LABS: BASOPHILS % 0.6 % (0.0-2.0); EOSINOPHILS % 0.3 % (0.0-5.0); HEMATOCRIT. 37.3 % (36.0-48.0); HEMOGLOBIN. 12.3 g/dL (12.0-16.0); LYMPHOCYTES % 19.3 % (20.0-50.0); MEAN CORPUSCULAR HEMOGLOBIN 34.3 pg (28.0-32.0); MEAN CORPUSCULAR VOLUME 103.7 fL (81.0-99.0); MEAN PLATELET VOLUME 6.9 fl (7.4-10.4); MONOCYTES % 5.3 % (2.0-8.0); NEUTROPHILS % 74.5 % (40.0-76.0); PLATELET 220 x1000/uL (130-400); RED BLOOD CELL COUNT 3.59 mill/uL (4.2-5.4); RED CELL DISTRIBUTION WIDTH 14.7 % (11.6-14.6)
[2019-01-21 09:02] LABS: CHLORIDE 110 mEq/L (98-107)
[2019-01-21] MEDS ORDERED: IBUPROFEN 600MG TABLET PO ONE (10:30)
[2019-01-21 10:39] VITALS: BP 131/84
== END 2019-01-21 10:40 | disposition home or self-care (01) ==
LOC: ER 07:27
DX: R07.89 Other chest pain (principal)
CPT/HCPCS: 36415; 71045; 83880; 84484; 93005; 99284

== ENCOUNTER 2019-02-17 08:50 | Inpatient (IN) | payer MEDICARE, MEDICAID ==
[~2019-02-17] VITALS: Ht 165.1 cm; Wt 50.8 kg
[2019-02-17] MEDS ORDERED: ASPIRIN 81MG TABLET PO ONE (10:45)
[2019-02-17 12:15] LABS: CHLORIDE 108 mEq/L (98-107)
[2019-02-17] MEDS: NITROGLYCERIN 0.4MG TABLET SL SL PRN ×2 (12:23→14:10)
[2019-02-17 13:16] LABS: D-DIMER 0.28 mg/L FEU (<0.50); INR 1.1; PARTIAL THROMBOPLASTIN TIME 22.2 sec (23.4-31.0)
[2019-02-17 13:18] LABS: HEMATOCRIT. 33.7 % (36.0-48.0); HEMOGLOBIN. 11.3 g/dL (12.0-16.0); MEAN CORPUSCULAR HEMOGLOBIN 34.3 pg (28.0-32.0); MEAN PLATELET VOLUME 7.1 fl (7.4-10.4); PLATELET 276 x1000/uL (130-400); RED CELL DISTRIBUTION WIDTH 15.3 % (11.6-14.6)
[2019-02-17] MEDS ORDERED: IOHEXOL-350 100 ML BOTTLE ONE (14:23)
[2019-02-17] MEDS ORDERED: ONDANSETRON HCL 4MG/2ML INJ IV STA (15:23)
[2019-02-17] MEDS ORDERED: MORPHINE SULFATE 4 MG/ML CPJ (NOT FOR IM USE) IV STA (15:23)
[2019-02-17 15:48] LABS: PLATELET ESTIMATE NORMAL
[2019-02-17 18:00] VITALS: BP 118/65
[2019-02-17] MEDS ORDERED: CLONIDINE 0.1MG TABLET PO PRN (18:00)
[2019-02-17] MEDS ORDERED: ACETAMINOPHEN 325MG TABLET PO PRN (18:00)
[2019-02-17] MEDS ORDERED: ZOLPIDEM TARTRATE 5MG TABLET PO PRN (18:00)
[2019-02-17] MEDS: HYDROMORPHONE HCL/PF 2MG/ML CPJ IV PRN ×2 (19:06→23:59)
[2019-02-17] MEDS: ONDANSETRON HCL 4MG/2ML INJ IV PRN ×2 (19:06→23:59)
[2019-02-17] MEDS: DIPHENHYDRAMINE 50MG/ML VIAL IV PRN ×2 (19:07→23:59)
[2019-02-17 20:00] VITALS: BP 111/65
[2019-02-17] MEDS: IPRATROPIUM/ALBUTEROL 0.5-3(2.5)MG/3ML NEB HHN SCH (20:17)
[2019-02-18] VITALS: BP 125/99
[2019-02-18] MEDS: IPRATROPIUM/ALBUTEROL 0.5-3(2.5)MG/3ML NEB HHN SCH ×6 (00:14→20:00)
[2019-02-18 04:00] VITALS: BP 117/65
[2019-02-18] MEDS: ONDANSETRON HCL 4MG/2ML INJ IV PRN ×4 (05:06→20:48)
[2019-02-18] MEDS: HYDROMORPHONE HCL/PF 2MG/ML CPJ IV PRN ×4 (05:06→20:47)
[2019-02-18] MEDS: DIPHENHYDRAMINE 50MG/ML VIAL IV PRN ×4 (05:06→20:51)
[2019-02-18 06:14] LABS: BASOPHILS % 0.4 % (0.0-2.0); EOSINOPHILS % 0.6 % (0.0-5.0); HEMATOCRIT. 30.8 % (36.0-48.0); HEMOGLOBIN. 10.5 g/dL (12.0-16.0); LYMPHOCYTES % 29.1 % (20.0-50.0); MEAN CORPUSCULAR VOLUME 102.9 fL (81.0-99.0); MEAN PLATELET VOLUME 7.5 fl (7.4-10.4); MONOCYTES % 9.3 % (2.0-8.0); NEUTROPHILS % 60.6 % (40.0-76.0); PLATELET 261 x1000/uL (130-400); RED BLOOD CELL COUNT 2.99 mill/uL (4.2-5.4); RED CELL DISTRIBUTION WIDTH 15.1 % (11.6-14.6)
[2019-02-18 06:19] LABS: CHLORIDE 110 mEq/L (98-107)
[2019-02-18 08:00] VITALS: BP 90/53
[2019-02-18] MEDS ORDERED: ENOXAPARIN 40MG/0.4ML SYR SUBCUT ONE (09:00)
[2019-02-18] MEDS ORDERED: ENOXAPARIN 30MG/0.3ML SYR SUBCUT SCH (09:00)
[2019-02-18 11:38] LABS: T4 FREE 0.84 ng/dL (0.76-1.46)
[2019-02-18 12:00] VITALS: BP 96/63
[2019-02-18 15:07] LABS: CREATINE KINASE 52 IU/L (26-192)
[2019-02-18 15:08] LABS: CREATINE KINASE MB FRACTION < 1.0 ng/mL (0.5-3.6)
[2019-02-18 16:00] VITALS: BP 90/63
[2019-02-18 20:00] VITALS: BP 101/69
[2019-02-19] VITALS: BP 92/62
[2019-02-19 01:01] LABS: CREATINE KINASE 44 IU/L (26-192)
[2019-02-19 01:04] LABS: CREATINE KINASE MB FRACTION < 1.0 ng/mL (0.5-3.6)
[2019-02-19] MEDS: IPRATROPIUM/ALBUTEROL 0.5-3(2.5)MG/3ML NEB HHN SCH ×3 (01:04→09:01)
[2019-02-19] MEDS: ONDANSETRON HCL 4MG/2ML INJ IV PRN ×2 (02:47→08:14)
[2019-02-19] MEDS: HYDROMORPHONE HCL/PF 2MG/ML CPJ IV PRN ×2 (02:47→08:24)
[2019-02-19] MEDS: DIPHENHYDRAMINE 50MG/ML VIAL IV PRN ×2 (02:47→08:15)
[2019-02-19 04:00] VITALS: BP 96/62
[2019-02-19 06:00] VITALS: BP 96/65
[2019-02-19 06:38] LABS: BASOPHILS % 0.4 % (0.0-2.0); EOSINOPHILS % 0.9 % (0.0-5.0); HEMATOCRIT. 30.1 % (36.0-48.0); HEMOGLOBIN. 10.2 g/dL (12.0-16.0); LYMPHOCYTES % 21.5 % (20.0-50.0); MEAN CORPUSCULAR HEMOGLOBIN 34.8 pg (28.0-32.0); MEAN CORPUSCULAR VOLUME 103.4 fL (81.0-99.0); MEAN PLATELET VOLUME 7.4 fl (7.4-10.4); NEUTROPHILS % 64.2 % (40.0-76.0); PLATELET 230 x1000/uL (130-400); RED BLOOD CELL COUNT 2.92 mill/uL (4.2-5.4); RED CELL DISTRIBUTION WIDTH 15.2 % (11.6-14.6)
[2019-02-19 06:41] LABS: CHLORIDE 105 mEq/L (98-107)
[2019-02-19 07:00] LABS: CREATINE KINASE 44 IU/L (26-192)
[2019-02-19 07:03] LABS: CREATINE KINASE MB FRACTION < 1.0 ng/mL (0.5-3.6)
[2019-02-19] MEDS ORDERED: ENOXAPARIN 40MG/0.4ML SYR SUBCUT SCH (09:00)
[2019-02-19 10:30] VITALS: BP 105/79
== END 2019-02-19 10:50 | disposition home or self-care (01) | DRG 206 ==
LOC: ER 09:02 → 8WST 14:27 → EDBEDREQ 14:29 → ENRESERV 14:42 → 8WST 18:09
PROVIDERS: ADMIT Internal Medicine; ATTEND Internal Medicine
PROC: 02HV33Z Insertion of Infusion Device into Superior Vena Cava, Percutaneous Approach (ICD-10-PCS; principal; 2019-02-17)
PROC: B548ZZA Ultrasonography of Superior Vena Cava, Guidance (ICD-10-PCS; 2019-02-18)
DX: M94.0 Chondrocostal junction syndrome [Tietze] (principal); J98.11 Atelectasis; J44.9 Chronic obstructive pulmonary disease, unspecified; I10 Essential (primary) hypertension; I25.10 Atherosclerotic heart disease of native coronary artery without angina pectoris; Z96.649 Presence of unspecified artificial hip joint; I27.20 Pulmonary hypertension, unspecified; Z85.41 Personal history of malignant neoplasm of cervix uteri; Z86.711 Personal history of pulmonary embolism; Z86.718 Personal history of other venous thrombosis and embolism; I25.2 Old myocardial infarction; Z87.891 Personal history of nicotine dependence; Z90.710 Acquired absence of both cervix and uterus; Z79.51 Long term (current) use of inhaled steroids; Z88.5 Allergy status to narcotic agent; Z88.8 Allergy status to other drugs, medicaments and biological substances; Z79.899 Other long term (current) drug therapy
CPT/HCPCS: 36415; 36573; 71045; 71275; 80048; 80061; 82550; 82553; 83036; 83880; 84439; 84443; 84484; 85379; 87015; 87045; 87427; 87449; 87493; 93005; 93306; 93970; 94640; 99285; C1725; J1170; J1200; J1650; J2270; J2405; J7620; Q9967

== ENCOUNTER 2019-04-13 17:01 | Emergency (ER) | payer MEDICARE, MEDICAID ==
[~2019-04-13] VITALS: Ht 160 cm; Wt 50.0 kg
[~2019-04-13 17:01] MED LIST changes: -TYLENOL CODEINE PO
[2019-04-14] MEDS ORDERED: ONDANSETRON HCL 4MG/2ML INJ IV STA (01:24)
[2019-04-14] MEDS ORDERED: KETOROLAC 15MG/ML VIAL IV ONE (01:30)
[2019-04-14] MEDS ORDERED: DIPHENHYDRAMINE 25MG CAPSULE PO ONE (01:30)
[2019-04-14] MEDS ORDERED: ASPIRIN 81MG TABLET PO ONE (01:30)
[2019-04-14 02:07] LABS: BASOPHILS % 0.3 % (0.0-2.0); EOSINOPHILS % 0.4 % (0.0-5.0); HEMATOCRIT. 36.1 % (36.0-48.0); LYMPHOCYTES % 22.6 % (20.0-50.0); MEAN CORPUSCULAR HEMOGLOBIN 33.7 pg (28.0-32.0); MEAN CORPUSCULAR VOLUME 101.1 fL (81.0-99.0); MEAN PLATELET VOLUME 7.1 fl (7.4-10.4); MONOCYTES % 8.4 % (2.0-8.0); NEUTROPHILS % 68.3 % (40.0-76.0); PLATELET 215 x1000/uL (130-400); RED BLOOD CELL COUNT 3.57 mill/uL (4.2-5.4); RED CELL DISTRIBUTION WIDTH 16.4 % (11.6-14.6)
[2019-04-14 02:12] LABS: CHLORIDE 111 mEq/L (98-107)
[2019-04-14] MEDS ORDERED: ALBUTEROL (0.083%) 2.5MG/3ML NEB HHN SCH (02:37)
[2019-04-14] MEDS ORDERED: ACETAMINOPHEN WITH CODEINE 300/30MG TABLET PO SCH (03:30)
[2019-04-14 04:45] VITALS: BP 128/80
== END 2019-04-14 05:13 | disposition home or self-care (01) ==
LOC: ER 17:01
DX: G89.29 Other chronic pain (principal); R07.9 Chest pain, unspecified; R06.00 Dyspnea, unspecified; L29.9 Pruritus, unspecified; R19.7 Diarrhea, unspecified; Z76.5 Malingerer [conscious simulation]; Z90.710 Acquired absence of both cervix and uterus; F17.200 Nicotine dependence, unspecified, uncomplicated; Z79.899 Other long term (current) drug therapy; Z88.5 Allergy status to narcotic agent
CPT/HCPCS: 36415; 71045; 80053; 83880; 84484; 85025; 93005; 94640; 96374; 99284; J2405; J7611; Q0163

== ENCOUNTER 2019-04-24 02:50 | Inpatient (IN) | payer MEDICARE, MEDICAID ==
[~2019-04-24] VITALS: Ht 160 cm; Wt 44.9 kg
[2019-04-24] MEDS ORDERED: ALBUTEROL (0.083%) 2.5MG/3ML NEB HHN STA (03:35)
[2019-04-24] MEDS ORDERED: IPRATROPIUM BROMIDE (0.02%) 0.5MG/2.5ML NEB HHN STA (03:35)
[2019-04-24 04:39] LABS: BASOPHILS % 0.3 % (0.0-2.0); EOSINOPHILS % 0.1 % (0.0-5.0); HEMATOCRIT. 39.1 % (36.0-48.0); MEAN CORPUSCULAR HEMOGLOBIN 34.4 pg (28.0-32.0); MEAN CORPUSCULAR VOLUME 103.5 fL (81.0-99.0); MEAN PLATELET VOLUME 7.9 fl (7.4-10.4); MONOCYTES % 10.4 % (2.0-8.0); NEUTROPHILS % 77.2 % (40.0-76.0); PLATELET 301 x1000/uL (130-400); RED BLOOD CELL COUNT 3.78 mill/uL (4.2-5.4); RED CELL DISTRIBUTION WIDTH 16.3 % (11.6-14.6)
[2019-04-24 04:45] LABS: CHLORIDE 103 mEq/L (98-107)
[2019-04-24] MEDS ORDERED: SODIUM CHLORIDE 0.9% 1,000 ML IV ONE (05:10)
[2019-04-24] MEDS ORDERED: ONDANSETRON HCL 4MG/2ML INJ IV ONE (05:30)
[2019-04-24 09:20] VITALS: BP 135/85
[2019-04-24] MEDS ORDERED: HYDROMORPHONE HCL/PF 2MG/ML CPJ IV PRN ×2 (10:00→15:30)
[2019-04-24] MEDS ORDERED: LIDOCAINE HCL 1% 20ML VIAL (Pyxis) INJ ONE (10:06)
[2019-04-24] MEDS ORDERED: IOHEXOL-300 100 ML BOTTLE ONE (11:13)
[2019-04-24] MEDS: ONDANSETRON HCL 4MG/2ML INJ IV PRN ×3 (11:31→23:49)
[2019-04-24 12:00] VITALS: BP 111/83
[2019-04-24 13:00] VITALS: BP 135/85
[2019-04-24] MEDS: IPRATROPIUM/ALBUTEROL 0.5-3(2.5)MG/3ML NEB HHN SCH ×2 (15:11→20:36)
[2019-04-24] MEDS: HYDROMORPHONE HCL/PF 2MG/ML CPJ IV PRN ×3 (15:33→23:49)
[2019-04-24] MEDS: SODIUM CHLORIDE 0.45% 1,000 ML IV SCH (15:42)
[2019-04-24 16:00] VITALS: BP 104/73
[2019-04-24 16:10] LABS: CHLORIDE 101 mEq/L (98-107)
[2019-04-24] MEDS ORDERED: HYDRALAZINE 20MG/ML VIAL IV PRN (16:30)
[2019-04-24] MEDS ORDERED: LACTULOSE 20G/30ML UDC PO PRN (16:30)
[2019-04-24] MEDS ORDERED: HYDR2TAB4 MT (16:31)
[2019-04-24] MEDS ORDERED: DIPH25CA83 MT (16:31)
[2019-04-24] MEDS ORDERED: ONDA4TAB5 MT (16:31)
[2019-04-24] MEDS: DOCUSATE SODIUM 100MG CAPSULE PO SCH (17:00)
[2019-04-24] MEDS: DIPHENHYDRAMINE 50MG/ML VIAL IV PRN ×2 (17:32→23:50)
[2019-04-24 20:00] VITALS: BP 99/69
[2019-04-24] MEDS: BUDESONIDE 0.5MG/2ML NEB HHN SCH (20:00)
[2019-04-24] MEDS ORDERED: LEVOFLOXACIN 500MG PREMIX 100 ML IV NR (20:00)
[2019-04-24] MEDS: FAMOTIDINE 40MG TABLET PO SCH (21:08)
[2019-04-25] VITALS (8 sets, daily range): BP systolic 91–111; BP diastolic 51–75
[2019-04-25 00:28] LABS: PROTHROMBIN TIME 10.4 sec (9.6-11.0)
[2019-04-25] MEDS: IPRATROPIUM/ALBUTEROL 0.5-3(2.5)MG/3ML NEB HHN SCH ×3 (00:39→21:20)
[2019-04-25] MEDS: BUDESONIDE 0.5MG/2ML NEB HHN SCH (00:43)
[2019-04-25] MEDS: ONDANSETRON HCL 4MG/2ML INJ IV PRN ×5 (03:47→20:06)
[2019-04-25] MEDS: HYDROMORPHONE HCL/PF 2MG/ML CPJ IV PRN ×5 (03:49→20:07)
[2019-04-25] MEDS: SODIUM CHLORIDE 0.45% 1,000 ML IV SCH (06:31)
[2019-04-25 07:05] LABS: CLARITY URINE CLEAR (CLEAR); COLOR URINE YELLOW (YELLOW); KETONES URINE NEGATIVE (NEGATIVE); LEUKOCYTE ESTERASE URINE NEGATIVE (NEGATIVE); NITRITE URINE NEGATIVE (NEGATIVE); OCCULT BLOOD URINE NEGATIVE (NEGATIVE); PH URINE 6.5 (4.5-8.0); PROTEIN URINE NEGATIVE (NEGATIVE); SPECIFIC GRAVITY URINE 1.013 (1.005-1.030); UROBILINOGEN URINE 0.2 E.U./dL (0.2-1.0)
[2019-04-25 07:14] LABS: BASOPHILS % 0.4 % (0.0-2.0); EOSINOPHILS % 0.7 % (0.0-5.0); HEMATOCRIT. 27.5 % (36.0-48.0); HEMOGLOBIN. 9.2 g/dL (12.0-16.0); LYMPHOCYTES % 17.1 % (20.0-50.0); MEAN CORPUSCULAR HEMOGLOBIN 34.3 pg (28.0-32.0); MEAN CORPUSCULAR VOLUME 102.4 fL (81.0-99.0); MEAN PLATELET VOLUME 7.4 fl (7.4-10.4); MONOCYTES % 14.2 % (2.0-8.0); NEUTROPHILS % 67.6 % (40.0-76.0); PLATELET 205 x1000/uL (130-400); RED BLOOD CELL COUNT 2.69 mill/uL (4.2-5.4); RED CELL DISTRIBUTION WIDTH 16.1 % (11.6-14.6)
[2019-04-25 07:27] LABS: CHLORIDE 103 mEq/L (98-107)
[2019-04-25] MEDS: DIPHENHYDRAMINE 50MG/ML VIAL IV PRN ×2 (07:52→13:56)
[2019-04-25] MEDS: DOCUSATE SODIUM 100MG CAPSULE PO SCH ×2 (07:52→16:00)
[2019-04-25] MEDS ORDERED: LEVO500T2 PO (16:41)
[2019-04-25] MEDS ORDERED: ALBU90AE INH (16:41)
[2019-04-25] MEDS ORDERED: P20 PO (16:41)
[2019-04-25] MEDS ORDERED: LEVOFLOXACIN 250MG PREMIX 50 ML IV SCH (20:00)
[2019-04-25] MEDS: FAMOTIDINE 40MG TABLET PO SCH (20:06)
== END 2019-04-25 22:00 | disposition home or self-care (01) | DRG 205 ==
LOC: ER 03:44 → EDBEDREQ 05:11 → 5WST 05:16 → EDBEDREQ 05:17 → EDBEDREQTM 05:17 → ENRESERV 07:13
PROVIDERS: ADMIT Internal Medicine; ATTEND Internal Medicine
PROC: 05HY33Z Insertion of Infusion Device into Upper Vein, Percutaneous Approach (ICD-10-PCS; principal; 2019-04-24)
PROC: B54MZZA Ultrasonography of Right Upper Extremity Veins, Guidance (ICD-10-PCS; 2019-04-24)
PROC: B51MZZA Fluoroscopy of Right Upper Extremity Veins, Guidance (ICD-10-PCS; 2019-04-24)
DX: M94.0 Chondrocostal junction syndrome [Tietze] (principal); I50.33 Acute on chronic diastolic (congestive) heart failure; F11.20 Opioid dependence, uncomplicated; D68.59 Other primary thrombophilia; D64.9 Anemia, unspecified; R09.1 Pleurisy; J06.9 Acute upper respiratory infection, unspecified; Z96.649 Presence of unspecified artificial hip joint; E78.5 Hyperlipidemia, unspecified; E86.0 Dehydration; Z86.711 Personal history of pulmonary embolism; Z86.718 Personal history of other venous thrombosis and embolism; Z88.6 Allergy status to analgesic agent; Z88.4 Allergy status to anesthetic agent; J44.9 Chronic obstructive pulmonary disease, unspecified
CPT/HCPCS: 36415; 36573; 71045; 76700; 76937; 80048; 81003; 82270; 83880; 84484; 87493; 87804; 93005; 99285; C1725; J1170; J1200; J1956; J2405; J3490; J7030; J7611; J7620; J7626; Q9967

== ENCOUNTER 2019-04-27 17:56 | Inpatient (IN) | payer MEDICARE, MEDICAID ==
[~2019-04-27] VITALS: Ht 167.6 cm; Wt 60.8 kg
[~2019-04-27 17:56] MED LIST changes: -ALBU05 NEB; +ALBU90AE INH; -BUDE6HFA INH; +DIPH25CA83 MT; +HYDR2TAB4 MT; +LEVO500T2 PO; +ONDA4TAB5 MT; +P20 PO
[2019-04-27] MEDS ORDERED: IPRATROPIUM BROMIDE (0.02%) 0.5MG/2.5ML NEB HHN STA (19:26)
[2019-04-27] MEDS ORDERED: METHYLPREDNISOLONE SOD SUCC 125 MG/2 ML VIAL IV STA (19:26)
[2019-04-27] MEDS ORDERED: ALBUTEROL (0.083%) 2.5MG/3ML NEB HHN STA (19:26)
[2019-04-27] MEDS ORDERED: MAGNESIUM 2 G PREMIX 50 ML IV ONE (19:30)
[2019-04-27 20:10] LABS: BASOPHILS % 0.4 % (0.0-2.0); EOSINOPHILS % 0.5 % (0.0-5.0); HEMATOCRIT. 31.5 % (36.0-48.0); HEMOGLOBIN. 10.6 g/dL (12.0-16.0); LYMPHOCYTES % 10.8 % (20.0-50.0); MEAN CORPUSCULAR HEMOGLOBIN 34.4 pg (28.0-32.0); MEAN PLATELET VOLUME 7.5 fl (7.4-10.4); MONOCYTES % 9.6 % (2.0-8.0); NEUTROPHILS % 78.7 % (40.0-76.0); PLATELET 250 x1000/uL (130-400); RED BLOOD CELL COUNT 3.09 mill/uL (4.2-5.4); RED CELL DISTRIBUTION WIDTH 15.5 % (11.6-14.6)
[2019-04-27 20:14] LABS: CHLORIDE 105 mEq/L (98-107)
[2019-04-28] VITALS: BP 147/84
[2019-04-28 00:37] VITALS: BP 147/84
[2019-04-28] MEDS ORDERED: GUAIFENESIN 200MG/10ML SUGAR FREE UDC PO PRN (01:30)
[2019-04-28] MEDS ORDERED: IPRATROPIUM/ALBUTEROL 0.5-3(2.5)MG/3ML NEB HHN PRN (01:30)
[2019-04-28] MEDS ORDERED: ONDANSETRON HCL 4MG/2ML INJ IV PRN (01:30)
[2019-04-28] MEDS: LEVOFLOXACIN 500MG PREMIX 100 ML IV SCH (03:57)
[2019-04-28] MEDS: DIPHENHYDRAMINE 50MG/ML VIAL IV PRN ×4 (03:57→21:57)
[2019-04-28] MEDS: METHYLPREDNISOLONE SOD SUCC 125 MG/2 ML VIAL IV SCH ×3 (06:07→17:30)
[2019-04-28 08:00] VITALS: BP 109/70
[2019-04-28] MEDS ORDERED: BUDESONIDE 0.5MG/2ML NEB HHN SCH (09:00)
[2019-04-28] MEDS ORDERED: ACETAMINOPHEN 325MG TABLET PO PRN ×2 (09:00→17:15)
[2019-04-28 09:07] LABS: BG BASE EXCESS 0.6 mmol/L (-2.0-2.0); BG CARBOXYHEMOGLOBIN 0.5 % (0.5-1.5); BG DEOXYHEMOGLOBIN 3.8 % (0.0-5.0); BG FRACTION INSPIRED OXYGEN 21; BG HCO3 ACT 24.9 mmol/L (22.0-26.0); BG METHEMOGLOBIN 0.1 % (0.0-1.5); BG OXYGEN SATURATION 96.2 % (92.0-98.5); BG OXYHEMOGLOBIN 95.6 % (94.0-97.0); BG PCO2 38.8 mmHg (35.0-45.0); BG PH 7.425 (7.350-7.450); BG PO2 88.3 mmHg (75.0-100.0); BG SAMPLE SITE RIGHT RADIAL; BG TOTAL HEMOGLOBIN 10.8 g/dL (12.0-18.0); BG VENT MODE ROOM AIR
[2019-04-28] MEDS: ENOXAPARIN 40MG/0.4ML SYR SUBCUT SCH (09:42)
[2019-04-28] MEDS: CYCLOBENZAPRINE 10MG TABLET PO PRN ×2 (09:42→17:38)
[2019-04-28] MEDS: FAMOTIDINE 20MG TABLET PO SCH ×4 (09:42→21:05)
[2019-04-28 11:53] LABS: HEMATOCRIT. 31.4 % (36.0-48.0); HEMOGLOBIN. 10.5 g/dL (12.0-16.0); MEAN CORPUSCULAR HEMOGLOBIN 34.4 pg (28.0-32.0); MEAN CORPUSCULAR VOLUME 103.2 fL (81.0-99.0); MEAN PLATELET VOLUME 8.3 fl (7.4-10.4); PLATELET 238 x1000/uL (130-400); RED BLOOD CELL COUNT 3.04 mill/uL (4.2-5.4); RED CELL DISTRIBUTION WIDTH 16.1 % (11.6-14.6)
[2019-04-28 12:00] VITALS: BP 94/62
[2019-04-28 15:52] LABS: PLATELET ESTIMATE NORMAL
[2019-04-28 16:00] VITALS: BP 115/74
[2019-04-28] MEDS ORDERED: ACETAMINOPHEN 650MG SUPP PR PRN (17:15)
[2019-04-28] MEDS: GABAPENTIN 100MG CAPSULE PO SCH (17:30)
[2019-04-28] MEDS: IPRATROPIUM/ALBUTEROL 0.5-3(2.5)MG/3ML NEB HHN SCH (21:20)
[2019-04-29] VITALS: BP 106/74
[2019-04-29] MEDS: GABAPENTIN 100MG CAPSULE PO SCH ×2 (01:08→08:47)
[2019-04-29] MEDS: METHYLPREDNISOLONE SOD SUCC 125 MG/2 ML VIAL IV SCH ×2 (01:08→06:25)
[2019-04-29] MEDS: IPRATROPIUM/ALBUTEROL 0.5-3(2.5)MG/3ML NEB HHN SCH ×2 (01:20→06:00)
[2019-04-29] MEDS: CYCLOBENZAPRINE 10MG TABLET PO PRN (01:26)
[2019-04-29] MEDS: LEVOFLOXACIN 500MG PREMIX 100 ML IV SCH (03:41)
[2019-04-29] MEDS: DIPHENHYDRAMINE 50MG/ML VIAL IV PRN ×2 (03:41→08:51)
[2019-04-29 04:00] VITALS: BP 117/80
[2019-04-29] MEDS: FAMOTIDINE 20MG TABLET PO SCH (08:47)
[2019-04-29] MEDS: ENOXAPARIN 40MG/0.4ML SYR SUBCUT SCH (08:47)
== END 2019-04-29 14:21 | disposition left against medical advice (07) | DRG 190 ==
LOC: ER 17:56 → 7WST 20:52 → CANBEDREQ 21:08 → ENRESERV 22:14
PROVIDERS: ADMIT Internal Medicine; ATTEND Internal Medicine
DX: J44.1 Chronic obstructive pulmonary disease with (acute) exacerbation (principal); I50.33 Acute on chronic diastolic (congestive) heart failure; D68.59 Other primary thrombophilia; F11.20 Opioid dependence, uncomplicated; J98.11 Atelectasis; I11.0 Hypertensive heart disease with heart failure; Z96.649 Presence of unspecified artificial hip joint; D64.9 Anemia, unspecified; J06.9 Acute upper respiratory infection, unspecified; Z53.29 Procedure and treatment not carried out because of patient's decision for other reasons; E78.5 Hyperlipidemia, unspecified; F17.200 Nicotine dependence, unspecified, uncomplicated; Z85.41 Personal history of malignant neoplasm of cervix uteri; Z86.711 Personal history of pulmonary embolism; Z86.718 Personal history of other venous thrombosis and embolism; Z90.710 Acquired absence of both cervix and uterus; Z88.8 Allergy status to other drugs, medicaments and biological substances; Z79.899 Other long term (current) drug therapy
CPT/HCPCS: 36415; 36600; 71045; 74018; 80053; 82375; 82805; 83880; 84484; 85025; 93005; 94644; 96374; 99291; J1200; J1650; J1956; J2405; J2930; J7040; J7611; J7620; J7626

== ENCOUNTER 2019-05-09 15:07 | Emergency (ER) | payer MEDICARE, MEDICAID ==
[~2019-05-09] VITALS: Ht 162.6 cm; Wt 55.0 kg
[2019-05-09] MEDS ORDERED: ONDANSETRON HCL 4MG/2ML INJ IV STA (23:20)
[2019-05-09 23:58] LABS: BASOPHILS % 0.5 % (0.0-2.0); EOSINOPHILS % 0.7 % (0.0-5.0); HEMATOCRIT. 32.5 % (36.0-48.0); HEMOGLOBIN. 11.1 g/dL (12.0-16.0); LYMPHOCYTES % 9.4 % (20.0-50.0); MEAN CORPUSCULAR HEMOGLOBIN 34.4 pg (28.0-32.0); MEAN CORPUSCULAR VOLUME 101.1 fL (81.0-99.0); MEAN PLATELET VOLUME 7.6 fl (7.4-10.4); MONOCYTES % 9.5 % (2.0-8.0); NEUTROPHILS % 79.9 % (40.0-76.0); PLATELET 230 x1000/uL (130-400); RED BLOOD CELL COUNT 3.21 mill/uL (4.2-5.4); RED CELL DISTRIBUTION WIDTH 15.5 % (11.6-14.6)
[2019-05-10 00:01] LABS: CHLORIDE 104 mEq/L (98-107)
[2019-05-10] MEDS ORDERED: ALBUTEROL (0.083%) 2.5MG/3ML NEB HHN STA (00:48)
[2019-05-10] MEDS ORDERED: IPRATROPIUM BROMIDE (0.02%) 0.5MG/2.5ML NEB HHN STA (00:48)
[2019-05-10] MEDS ORDERED: ONDANSETRON 4MG ODT PO STA (00:48)
[2019-05-10] MEDS ORDERED: MAGNESIUM CITRATE 300ML SOLUTION PO ONE (01:00)
[2019-05-10] MEDS ORDERED: MORPHINE SULFATE 2 MG/ML CPJ (NOT FOR IM USE) IV ONE (01:45)
[2019-05-10 03:00] VITALS: BP 146/89
== END 2019-05-10 03:05 | disposition home or self-care (01) ==
LOC: ER 15:07
DX: R06.02 Shortness of breath (principal); R05 Cough; M54.9 Dorsalgia, unspecified; Z88.1 Allergy status to other antibiotic agents; Z88.5 Allergy status to narcotic agent; Z88.9 Allergy status to unspecified drugs, medicaments and biological substances; Z79.899 Other long term (current) drug therapy; Z90.710 Acquired absence of both cervix and uterus
CPT/HCPCS: 36415; 71045; 80053; 83880; 84484; 85025; 93005; 94640; 99284; J7611; Q0162

== ENCOUNTER 2019-06-05 08:23 | Emergency (ER) | payer MEDICARE, MEDICAID ==
[~2019-06-05] VITALS: Ht 160 cm; Wt 45.3 kg
[2019-06-05 09:59] LABS: HEMATOCRIT. 30.5 % (36.0-48.0); HEMOGLOBIN. 10.1 g/dL (12.0-16.0); MEAN CORPUSCULAR HEMOGLOBIN 33.1 pg (28.0-32.0); MEAN CORPUSCULAR VOLUME 100.2 fL (81.0-99.0); RED BLOOD CELL COUNT 3.04 mill/uL (4.2-5.4); RED CELL DISTRIBUTION WIDTH 17.5 % (11.6-14.6)
[2019-06-05 10:05] LABS: CHLORIDE 108 mEq/L (98-107)
[2019-06-05 10:40] LABS: MEAN PLATELET VOLUME 8.5 fl (7.4-10.4); PLATELET ESTIMATE NORMAL
[2019-06-05 10:41] LABS: PLATELET 239 x1000/uL (130-400)
[2019-06-05 11:30] VITALS: BP 135/97
== END 2019-06-05 12:13 | disposition home or self-care (01) ==
LOC: ER 08:23
DX: R07.89 Other chest pain (principal); B02.9 Zoster without complications; J44.9 Chronic obstructive pulmonary disease, unspecified; F17.210 Nicotine dependence, cigarettes, uncomplicated; Z90.710 Acquired absence of both cervix and uterus; Z85.41 Personal history of malignant neoplasm of cervix uteri; Z98.890 Other specified postprocedural states; Z88.6 Allergy status to analgesic agent
CPT/HCPCS: 36415; 71045; 80053; 83880; 84484; 85025; 93005; 99284

== ENCOUNTER 2019-06-30 13:53 | Inpatient (IN) | payer MEDICARE, MEDICAID ==
[~2019-06-30] VITALS: Ht 162.6 cm; Wt 46.9 kg
[2019-06-30] MEDS ORDERED: ALBUTEROL (0.083%) 2.5MG/3ML NEB HHN STA ×2 (16:05→17:23)
[2019-06-30] MEDS ORDERED: IPRATROPIUM BROMIDE (0.02%) 0.5MG/2.5ML NEB HHN STA (16:05)
[2019-06-30] MEDS ORDERED: ASPIRIN 81MG TABLET PO ONE ×2 (16:15→17:30)
[2019-06-30 17:08] LABS: BASOPHILS % 1.1 % (0.0-2.0); EOSINOPHILS % 1.1 % (0.0-5.0); HEMATOCRIT. 34.7 % (36.0-48.0); HEMOGLOBIN. 11.5 g/dL (12.0-16.0); LYMPHOCYTES % 28.2 % (20.0-50.0); MEAN CORPUSCULAR HEMOGLOBIN 32.9 pg (28.0-32.0); MEAN PLATELET VOLUME 7.1 fl (7.4-10.4); MONOCYTES % 9.1 % (2.0-8.0); NEUTROPHILS % 60.5 % (40.0-76.0); PLATELET 307 x1000/uL (130-400); RED BLOOD CELL COUNT 3.51 mill/uL (4.2-5.4)
[2019-06-30 17:15] LABS: CHLORIDE 103 mEq/L (98-107)
[2019-06-30] MEDS ORDERED: METHYLPREDNISOLONE SOD SUCC 125 MG/2 ML VIAL IV STA (17:23)
[2019-06-30] MEDS ORDERED: HYDROCODONE/ACETAMINOPHEN 5/325MG TABLET PO ONE (18:00)
[2019-06-30] MEDS ORDERED: HYDROMORPHONE HCL/PF 2MG/ML CPJ IV PRN (22:15)
[2019-07-01] MEDS: DIPHENHYDRAMINE 50MG/ML VIAL IV PRN ×3 (01:48→16:08)
[2019-07-01] MEDS: ONDANSETRON HCL 4MG/2ML INJ IV PRN ×3 (01:49→16:08)
[2019-07-01] MEDS: MORPHINE SULFATE 2 MG/ML CPJ (NOT FOR IM USE) IV PRN ×3 (01:49→16:08)
[2019-07-01 09:27] VITALS: BP 131/67
[2019-07-01 09:30] VITALS: BP 131/67
[2019-07-01 12:26] VITALS: BP 93/56
[2019-07-01 14:26] LABS: CHLORIDE 103 mEq/L (98-107)
[2019-07-01 14:30] LABS: HEMATOCRIT 33.6 % (36.0-48.0); HEMOGLOBIN 11.2 g/dL (12.0-16.0); MEAN CORPUSCULAR HEMOGLOBIN 33.3 pg (28.0-32.0); MEAN CORPUSCULAR VOLUME 99.4 fL (81.0-99.0); PLATELET 298 x1000/uL (130-400); RED BLOOD CELL COUNT 3.38 mill/uL (4.2-5.4); RED CELL DISTRIBUTION WIDTH 17.8 % (11.6-14.6)
[2019-07-01 16:04] VITALS: BP 102/57
[2019-07-01 17:25] VITALS: BP 102/57
== END 2019-07-01 18:35 | disposition home or self-care (01) | DRG 205 ==
LOC: ER 15:03 → 6WST 18:05 → EDBEDREQ 18:18 → ENRESERV 07-01 08:00
PROVIDERS: ADMIT Internal Medicine; ATTEND Internal Medicine
DX: M94.0 Chondrocostal junction syndrome [Tietze] (principal); I50.33 Acute on chronic diastolic (congestive) heart failure; F11.20 Opioid dependence, uncomplicated; D68.59 Other primary thrombophilia; E78.5 Hyperlipidemia, unspecified; J44.9 Chronic obstructive pulmonary disease, unspecified; Z96.649 Presence of unspecified artificial hip joint; Z87.891 Personal history of nicotine dependence; Z90.710 Acquired absence of both cervix and uterus; Z86.718 Personal history of other venous thrombosis and embolism; Z86.711 Personal history of pulmonary embolism; Z88.6 Allergy status to analgesic agent; Z88.4 Allergy status to anesthetic agent; Z88.8 Allergy status to other drugs, medicaments and biological substances; Z85.89 Personal history of malignant neoplasm of other organs and systems
CPT/HCPCS: 36415; 71045; 72040; 72170; 73130; 80048; 80053; 83880; 84484; 85025; 85027; 93005; 99285; J1200; J2270; J2405; J2930

== ENCOUNTER 2019-09-15 07:53 | Emergency (ER) | payer MEDICARE, MEDICAID ==
[~2019-09-15] VITALS: Ht 162.6 cm; Wt 50.0 kg
[2019-09-15 09:23] LABS: BASOPHILS % 0.9 % (0.0-2.0); EOSINOPHILS % 0.1 % (0.0-5.0); HEMATOCRIT. 37.4 % (36.0-48.0); HEMOGLOBIN. 12.6 g/dL (12.0-16.0); LYMPHOCYTES % 27.9 % (20.0-50.0); MEAN CORPUSCULAR HEMOGLOBIN 34.8 pg (28.0-32.0); MEAN CORPUSCULAR VOLUME 103.2 fL (81.0-99.0); MEAN PLATELET VOLUME 7.7 fl (7.4-10.4); MONOCYTES % 9.1 % (2.0-8.0); PLATELET 199 x1000/uL (130-400); RED BLOOD CELL COUNT 3.62 mill/uL (4.2-5.4); RED CELL DISTRIBUTION WIDTH 19.4 % (11.6-14.6)
[2019-09-15 09:28] LABS: CHLORIDE 108 mEq/L (98-107)
[2019-09-15] MEDS ORDERED: INSULIN REGULAR (HUMULIN R) 300UNITS/3ML IV ONE (10:00)
[2019-09-15] MEDS ORDERED: DEXTROSE 50% WATER 50ML SYRINGE IV ONE (10:00)
[2019-09-15] MEDS ORDERED: CALCIUM GLUCONATE 1,000 MG in DEXT 5% WATER 100 ML IV ONE (10:00)
[2019-09-15] MEDS ORDERED: SODIUM CHLORIDE 0.9% 1,000 ML IV ONE (10:06)
[2019-09-15] MEDS ORDERED: METHYLPREDNISOLONE SOD SUCC 125 MG/2 ML VIAL IV ONE (10:30)
[2019-09-15] MEDS ORDERED: MORPHINE SULFATE 4 MG/ML CPJ (NOT FOR IM USE) IV ONE (11:45)
[2019-09-15] MEDS ORDERED: DIPHENHYDRAMINE 50MG CAPSULE PO ONE (11:45)
[2019-09-15] MEDS ORDERED: ACETAMINOPHEN 325MG TABLET PO PRN (13:15)
[2019-09-15] MEDS ORDERED: ONDANSETRON HCL 4MG/2ML INJ IV PRN (13:15)
[2019-09-15] MEDS ORDERED: HYDROCODONE/ACETAMINOPHEN 10/325MG TABLET PO PRN (13:45)
[2019-09-15 16:00] VITALS: BP 118/78
[2019-09-15 16:12] LABS: CLARITY URINE CLEAR (CLEAR); COLOR URINE YELLOW (YELLOW); KETONES URINE NEGATIVE (NEGATIVE); LEUKOCYTE ESTERASE URINE NEGATIVE (NEGATIVE); NITRITE URINE NEGATIVE (NEGATIVE); OCCULT BLOOD URINE NEGATIVE (NEGATIVE); PROTEIN URINE NEGATIVE (NEGATIVE); SPECIFIC GRAVITY URINE 1.013 (1.005-1.030); UROBILINOGEN URINE 0.2 E.U./dL (0.2-1.0)
[2019-09-15] MEDS ORDERED: IPRATROPIUM/ALBUTEROL 0.5-3(2.5)MG/3ML NEB HHN PRN (16:45)
== END 2019-09-15 17:07 | disposition left against medical advice (07) ==
LOC: ER 08:20 → EDBEDREQ 10:16 → ER 17:07 → ENRESERV 19:05 → CANRESERV 19:05 → CANBEDREQ 22:08
DX: E87.5 Hyperkalemia (principal); R07.89 Other chest pain; R06.00 Dyspnea, unspecified; I10 Essential (primary) hypertension; Z85.9 Personal history of malignant neoplasm, unspecified; Z90.710 Acquired absence of both cervix and uterus; Z79.899 Other long term (current) drug therapy; Z20.828 Contact with and (suspected) exposure to other viral communicable diseases
CPT/HCPCS: 36415; 71045; 76937; 80053; 81003; 83690; 83880; 84132; 84484; 85025; 85610; 86850; 86900; 86901; 87635; 93005; 96365; 96375; 99285; C1725; J0610; J1815; J2270; J2930; J7030; J7060; Q0163

== ENCOUNTER 2019-11-25 18:23 | Inpatient (IN) | payer MEDICARE, MEDICAID ==
[~2019-11-25] VITALS: Ht 160 cm; Wt 55.3 kg
[2019-11-25] MEDS ORDERED: ASPIRIN 81MG TABLET PO ONE (21:15)
[2019-11-25 21:48] LABS: BASOPHILS % 0.8 % (0.0-2.0); EOSINOPHILS % 1.7 % (0.0-5.0); HEMATOCRIT. 34.4 % (36.0-48.0); HEMOGLOBIN. 11.3 g/dL (12.0-16.0); LYMPHOCYTES % 34.4 % (20.0-50.0); MEAN CORPUSCULAR HEMOGLOBIN 36.2 pg (28.0-32.0); MEAN CORPUSCULAR VOLUME 110.2 fL (81.0-99.0); MEAN PLATELET VOLUME 7.4 fl (7.4-10.4); MONOCYTES % 13.4 % (2.0-8.0); NEUTROPHILS % 49.7 % (40.0-76.0); PLATELET 226 x1000/uL (130-400); RED BLOOD CELL COUNT 3.12 mill/uL (4.2-5.4); RED CELL DISTRIBUTION WIDTH 14.5 % (11.6-14.6)
[2019-11-25 21:53] LABS: CHLORIDE 107 mEq/L (98-107)
[2019-11-25 21:57] LABS: D-DIMER 0.9 mg/L FEU (<0.50); PARTIAL THROMBOPLASTIN TIME 22.5 sec (23.4-31.0); PROTHROMBIN TIME 10.4 sec (9.6-11.0)
[2019-11-25 22:22] LABS: PLATELET ESTIMATE NORMAL
[2019-11-26] MEDS ORDERED: ENOXAPARIN 40MG/0.4ML SYR SUBCUT ONE (00:45)
[2019-11-26 04:34] VITALS: BP 119/86
[2019-11-26] MEDS ORDERED: TRAMADOL 50MG TABLET PO PRN (05:15)
[2019-11-26 08:00] VITALS: BP 120/84
[2019-11-26] MEDS ORDERED: ASPIRIN 81MG TABLET PO SCH (09:00)
[2019-11-26] MEDS ORDERED: PANTOPRAZOLE SODIUM 40 MG/VIAL IV SCH (09:00)
== END 2019-11-26 08:30 | disposition left against medical advice (07) | DRG 206 ==
LOC: ER 18:40 → 3WST 11-26 00:18 → EDBEDREQ 11-26 00:37 → EDBEDREQTM 11-26 00:37 → EDBEDREQ 11-26 00:40 → ENRESERV 11-26 02:03
PROVIDERS: ADMIT Internal Medicine; ATTEND Internal Medicine
DX: M94.0 Chondrocostal junction syndrome [Tietze] (principal); F11.20 Opioid dependence, uncomplicated; I10 Essential (primary) hypertension; Z96.643 Presence of artificial hip joint, bilateral; Z53.29 Procedure and treatment not carried out because of patient's decision for other reasons; Z90.710 Acquired absence of both cervix and uterus; Z85.41 Personal history of malignant neoplasm of cervix uteri; Z88.5 Allergy status to narcotic agent; Z88.8 Allergy status to other drugs, medicaments and biological substances; Z79.2 Long term (current) use of antibiotics; Z79.899 Other long term (current) drug therapy
CPT/HCPCS: 36415; 71045; 78580; 80053; 83880; 84484; 85025; 85379; 93005; 93970; 96372; 99285; J1650

== ENCOUNTER 2020-05-24 06:10 | Emergency (ER) | payer MEDICARE, MEDICAID ==
[~2020-05-24] VITALS: Ht 170.2 cm; Wt 56.0 kg
[~2020-05-24 06:10] MED LIST changes: -LEVO500T2 PO; -ONDA4TAB5 MT; -P20 PO
[2020-05-24 09:54] LABS: CHLORIDE 108 mEq/L (98-107); EOSINOPHILS % 0.5 % (0.0-5.0); HEMATOCRIT. 34.7 % (36.0-48.0); HEMOGLOBIN. 11.5 g/dL (12.0-16.0); LYMPHOCYTES % 25.4 % (20.0-50.0); MEAN CORPUSCULAR HEMOGLOBIN 33.8 pg (28.0-32.0); MEAN CORPUSCULAR VOLUME 101.6 fL (81.0-99.0); MEAN PLATELET VOLUME 7.3 fl (7.4-10.4); MONOCYTES % 9.8 % (2.0-8.0); NEUTROPHILS % 63.3 % (40.0-76.0); PLATELET 292 x1000/uL (130-400); RED BLOOD CELL COUNT 3.41 mill/uL (4.2-5.4); RED CELL DISTRIBUTION WIDTH 15.2 % (11.6-14.6)
[2020-05-24 09:57] LABS: ETHANOL BLOOD < 10 mg/dL
[2020-05-24] MEDS ORDERED: MORPHINE SULFATE 4 MG/ML CPJ (NOT FOR IM USE) IV ONE ×2 (10:00→22:00)
[2020-05-24] MEDS ORDERED: ACETAMINOPHEN 325MG TABLET PO ONE (10:00)
[2020-05-24] MEDS ORDERED: DIPHENHYDRAMINE 25MG CAPSULE PO ONE (11:00)
[2020-05-24] MEDS ORDERED: ONDANSETRON 4MG ODT PO ONE (11:00)
[2020-05-24] MEDS ORDERED: ASPIRIN 325MG EC TABLET PO ONE (12:15)
[2020-05-24] MEDS ORDERED: ONDANSETRON HCL 4MG/2ML INJ IV ONE (13:15)
[2020-05-24 14:13] LABS: *AMPHETAMINES SCREEN URINE NEGATIVE (NEGATIVE); *BARBITURATES SCREEN URINE NEGATIVE (NEGATIVE); *BENZODIAZEPINES SCREEN URINE NEGATIVE (NEGATIVE); *COCAINE SCREEN URINE NEGATIVE (NEGATIVE); CANNABINOID URINE SCREEN NEGATIVE (NEGATIVE); METHADONE URINE SCREEN NEGATIVE (NEGATIVE); OPIATES URINE SCREEN PRESUMTIVE POSITIVE (NEGATIVE); PHENCYCLIDINE URINE SCREEN NEGATIVE (NEGATIVE)
[2020-05-24] MEDS ORDERED: IOHEXOL-350 100 ML BOTTLE ONE (15:02)
[2020-05-24] MEDS ORDERED: MAGNESIUM/ALUMINUM HYDROXIDE/SIMETHICONE 30ML UDC PO PRN (22:45)
[2020-05-24] MEDS ORDERED: CLONIDINE 0.1MG TABLET PO PRN (22:45)
[2020-05-24] MEDS ORDERED: DOCUSATE SODIUM 100MG CAPSULE PO PRN (22:45)
[2020-05-24] MEDS ORDERED: ACETAMINOPHEN 325MG TABLET PO PRN (22:45)
[2020-05-24] MEDS: ONDANSETRON HCL 4MG/2ML INJ IV PRN (23:37)
[2020-05-25] MEDS: MORPHINE SULFATE 2 MG/ML CPJ (NOT FOR IM USE) IV PRN ×2 (04:16→08:45)
[2020-05-25 06:45] LABS: BASOPHILS % 0.7 % (0.0-2.0); EOSINOPHILS % 1.9 % (0.0-5.0); HEMATOCRIT. 36.2 % (36.0-48.0); HEMOGLOBIN. 12.1 g/dL (12.0-16.0); LYMPHOCYTES % 29.4 % (20.0-50.0); MEAN CORPUSCULAR HEMOGLOBIN 33.7 pg (28.0-32.0); MEAN CORPUSCULAR VOLUME 101.4 fL (81.0-99.0); MONOCYTES % 10.5 % (2.0-8.0); NEUTROPHILS % 57.5 % (40.0-76.0); PLATELET 281 x1000/uL (130-400); RED BLOOD CELL COUNT 3.57 mill/uL (4.2-5.4); RED CELL DISTRIBUTION WIDTH 15.4 % (11.6-14.6)
[2020-05-25 06:54] LABS: CHLORIDE 107 mEq/L (98-107)
[2020-05-25 06:59] LABS: LDL CHOLESTEROL 103 mg/dL (5-100); PHOSPHORUS 3.6 mg/dL (2.5-4.9)
[2020-05-25 07:03] LABS: HDL CHOLESTEROL 105 mg/dL (40-59)
[2020-05-25] MEDS ORDERED: OMEPRAZOLE 20MG CAPSULE EXTENDED RELEASE PO SCH (07:50)
[2020-05-25] MEDS: ONDANSETRON HCL 4MG/2ML INJ IV PRN (08:45)
[2020-05-25] MEDS ORDERED: HYDROCODONE/ACETAMINOPHEN 5/325MG TABLET PO PRN (11:15)
[2020-05-25] MEDS ORDERED: NITROGLYCERIN 0.4MG TABLET SL SL PRN (11:15)
[2020-05-25] MEDS ORDERED: TRAMADOL 50MG TABLET PO PRN (13:00)
[2020-05-25] MEDS ORDERED: LIP40 PO (15:44)
[2020-05-25 16:30] VITALS: BP 130/95
[2020-05-25] MEDS ORDERED: ENOXAPARIN 40MG/0.4ML SYR SUBCUT SCH ×2 (21:00)
[2020-05-25] MEDS ORDERED: ATORVASTATIN CALCIUM 40MG TABLET PO SCH (21:00)
== END 2020-05-25 18:19 | disposition home or self-care (01) ==
LOC: ER 06:10 → EDBEDREQ 12:56 → ER 05-25 18:19 → CANBEDREQ 05-25 20:47
DX: R07.89 Other chest pain (principal); I25.10 Atherosclerotic heart disease of native coronary artery without angina pectoris; I25.2 Old myocardial infarction; F11.20 Opioid dependence, uncomplicated; I16.0 Hypertensive urgency; E78.5 Hyperlipidemia, unspecified; J44.9 Chronic obstructive pulmonary disease, unspecified; Z85.41 Personal history of malignant neoplasm of cervix uteri; Z88.8 Allergy status to other drugs, medicaments and biological substances; Z86.718 Personal history of other venous thrombosis and embolism; Z79.899 Other long term (current) drug therapy; Z90.710 Acquired absence of both cervix and uterus; Z96.649 Presence of unspecified artificial hip joint
CPT/HCPCS: 36415; 71045; 80048; 80053; 80061; 80305; 80320; 83605; 83735; 83880; 84100; 84443; 84484; 85025; 86850; 86900; 86901; 93005; 93970; 96372; 96374; 96375; 96376; 99285; J1650; J2270; J2405; Q0162; Q0163; Q9967; G0480

== ENCOUNTER 2020-09-25 01:44 | Emergency (ER) | payer MEDICARE, MEDICAID ==
[~2020-09-25] VITALS: Ht 157.5 cm; Wt 43.0 kg
[~2020-09-25 01:44] MED LIST changes: +LIP40 PO
[2020-09-25] MEDS ORDERED: ASPIRIN 81MG TABLET PO ONE (02:30)
[2020-09-25] MEDS ORDERED: NITROGLYCERIN 0.4MG TABLET SL SL PRN ×2 (02:30→07:00)
[2020-09-25 02:49] LABS: CHLORIDE 112 mEq/L (98-107)
[2020-09-25 02:51] LABS: BASOPHILS % 0.8 % (0.0-2.0); HEMATOCRIT. 34.5 % (36.0-48.0); HEMOGLOBIN. 11.5 g/dL (12.0-16.0); LYMPHOCYTES % 25.4 % (20.0-50.0); MEAN CORPUSCULAR HEMOGLOBIN 34.3 pg (28.0-32.0); MEAN CORPUSCULAR VOLUME 102.6 fL (81.0-99.0); MEAN PLATELET VOLUME 7.2 fl (7.4-10.4); MONOCYTES % 9.9 % (2.0-8.0); NEUTROPHILS % 62.9 % (40.0-76.0); PLATELET 238 x1000/uL (130-400); RED BLOOD CELL COUNT 3.36 mill/uL (4.2-5.4); RED CELL DISTRIBUTION WIDTH 15.7 % (11.6-14.6)
[2020-09-25] MEDS ORDERED: ACETAMINOPHEN 500MG TABLET PO ONE (03:45)
[2020-09-25] MEDS ORDERED: ONDANSETRON HCL 4MG/2ML INJ IV PRN (07:00)
[2020-09-25] MEDS ORDERED: ENOXAPARIN 40MG/0.4ML SYR SUBCUT SCH (07:00)
[2020-09-25] MEDS ORDERED: DOCUSATE SODIUM 100MG CAPSULE PO PRN (07:00)
[2020-09-25] MEDS ORDERED: MAGNESIUM/ALUMINUM HYDROXIDE/SIMETHICONE 30ML UDC PO PRN (07:00)
[2020-09-25] MEDS ORDERED: CLONIDINE 0.1MG TABLET PO PRN (07:00)
[2020-09-25] MEDS ORDERED: NA PHOS,M-B/NA PHOS,DI-BA ENEMA 118ML PR PRN (07:00)
[2020-09-25] MEDS ORDERED: GUAIFENESIN 200MG/10ML SUGAR FREE UDC PO PRN (07:00)
[2020-09-25] MEDS ORDERED: TRAMADOL 50MG TABLET PO PRN (07:00)
[2020-09-25] MEDS ORDERED: IPRATROPIUM/ALBUTEROL 0.5-3(2.5)MG/3ML NEB NEB PRN (07:00)
[2020-09-25] MEDS ORDERED: ACETAMINOPHEN 325MG TABLET PO PRN ×2 (07:00)
[2020-09-25] MEDS ORDERED: KETOROLAC 15MG/ML VIAL IV PRN (07:00)
[2020-09-25 07:39] LABS: ETHANOL BLOOD < 10 mg/dL; LDL CHOLESTEROL 75 mg/dL (5-100); TOTAL IRON BINDING CAPACITY 356 ug/dL (250-450)
[2020-09-25 07:42] LABS: HDL CHOLESTEROL 112 mg/dL (40-59)
[2020-09-25 07:57] LABS: FOLIC ACID (FOLATE) SERUM 6.5 ng/mL (>5.38)
[2020-09-25] MEDS ORDERED: ENOXAPARIN 30MG/0.3ML SYR SUBCUT SCH (08:00)
[2020-09-25] MEDS ORDERED: ASPIRIN 325MG EC TABLET PO SCH (09:00)
[2020-09-25] MEDS ORDERED: CHOLECALCIFEROL (D3) 1000 UNIT TABLET PO SCH (09:00)
[2020-09-25 09:15] VITALS: BP 139/86
[2020-09-25] MEDS: ASCORBIC ACID 500 MG TABLET PO SCH ×2 (09:54→10:04)
[2020-09-25] MEDS: ZINC SULFATE 220 MG ( 50 ) CAPSULE PO SCH ×2 (09:55→10:05)
[2020-09-25] MEDS: FAMOTIDINE 20MG TABLET PO SCH ×2 (09:55→10:06)
[2020-09-25] MEDS ORDERED: ZOLPIDEM TARTRATE 5MG TABLET PO PRN (21:00)
== END 2020-09-25 11:49 | disposition left against medical advice (07) ==
LOC: ER 01:53 → EDBEDREQ 04:33 → SUPCPDRO 07:00 → EDBEDREQ 07:08 → ER 11:49 → ENRESERV 12:30 → CANRESERV 12:30 → CANBEDREQ 13:13
DX: R07.89 Other chest pain (principal); Z85.6 Personal history of leukemia; Z90.710 Acquired absence of both cervix and uterus; F11.10 Opioid abuse, uncomplicated; Z79.899 Other long term (current) drug therapy
CPT/HCPCS: 36415; 71045; 80053; 80061; 80320; 82607; 82746; 83036; 83540; 83550; 83880; 84439; 84443; 84484; 85025; 85379; 93005; 93970; 96372; 99285; G0480

== ENCOUNTER 2020-12-19 12:57 | Emergency (ER) | payer MEDICARE, MEDICAID ==
[~2020-12-19] VITALS: Ht 157.5 cm; Wt 45.0 kg
[2020-12-19] MEDS ORDERED: ACETAMINOPHEN 325MG TABLET PO STA (14:25)
[2020-12-19 16:45] LABS: BASOPHILS % 0.5 % (0.0-2.0); EOSINOPHILS % 0.9 % (0.0-5.0); HEMATOCRIT. 30.4 % (36.0-48.0); HEMOGLOBIN. 10.4 g/dL (12.0-16.0); LYMPHOCYTES % 10.8 % (20.0-50.0); MEAN CORPUSCULAR HEMOGLOBIN 35.8 pg (28.0-32.0); MEAN CORPUSCULAR VOLUME 105.1 fL (81.0-99.0); MEAN PLATELET VOLUME 7.2 fl (7.4-10.4); MONOCYTES % 9.6 % (2.0-8.0); NEUTROPHILS % 78.2 % (40.0-76.0); PLATELET 334 x1000/uL (130-400); RED CELL DISTRIBUTION WIDTH 16.2 % (11.6-14.6)
[2020-12-19 17:07] LABS: CHLORIDE 104 mEq/L (98-107)
[2020-12-19] MEDS ORDERED: IBUPROFEN 600MG TABLET PO STA (17:16)
[2020-12-19] MEDS ORDERED: ALBU18HF2 IH (18:28)
[2020-12-19 19:52] VITALS: BP 120/70
== END 2020-12-19 19:56 | disposition home or self-care (01) ==
LOC: ER 12:57
DX: J44.9 Chronic obstructive pulmonary disease, unspecified (principal); M25.551 Pain in right hip; D64.9 Anemia, unspecified; Z96.659 Presence of unspecified artificial knee joint; Z90.710 Acquired absence of both cervix and uterus; Z85.41 Personal history of malignant neoplasm of cervix uteri; W01.0XXA Fall on same level from slipping, tripping and stumbling without subsequent striking against object, initial encounter; Y93.89 Activity, other specified; Y92.018 Other place in single-family (private) house as the place of occurrence of the external cause
CPT/HCPCS: 36415; 71045; 73522; 80053; 85025; 93005; 99285

== ENCOUNTER 2021-01-18 14:47 | Emergency (ER) | payer MEDICARE, MEDICAID ==
[~2021-01-18] VITALS: Ht 157.5 cm; Wt 42.0 kg
[~2021-01-18 14:47] MED LIST changes: +ALBU18HF2 IH
[2021-01-18] MEDS ORDERED: PANTOPRAZOLE SODIUM 40 MG/VIAL IV STA (16:32)
[2021-01-18 16:42] LABS: BASOPHILS % 0.4 % (0.0-2.0); EOSINOPHILS % 0.4 % (0.0-5.0); HEMATOCRIT. 28.4 % (36.0-48.0); LYMPHOCYTES % 13.3 % (20.0-50.0); MEAN CORPUSCULAR HEMOGLOBIN 36.3 pg (28.0-32.0); MEAN CORPUSCULAR VOLUME 103.6 fL (81.0-99.0); MEAN PLATELET VOLUME 6.7 fl (7.4-10.4); MONOCYTES % 8.2 % (2.0-8.0); NEUTROPHILS % 77.7 % (40.0-76.0); PLATELET 235 x1000/uL (130-400); RED BLOOD CELL COUNT 2.74 mill/uL (4.2-5.4); RED CELL DISTRIBUTION WIDTH 16.7 % (11.6-14.6)
[2021-01-18 16:44] LABS: CHLORIDE 107 mEq/L (98-107); PROTHROMBIN TIME 10.9 sec (9.6-11.0)
[2021-01-18] MEDS ORDERED: SODIUM CHLORIDE 0.9% 1,000 ML IV ONE (16:45)
[2021-01-18 16:46] LABS: ETHANOL BLOOD < 10 mg/dL
[2021-01-18 17:54] LABS: *AMPHETAMINES SCREEN URINE NEGATIVE (NEGATIVE); *BARBITURATES SCREEN URINE NEGATIVE (NEGATIVE); *BENZODIAZEPINES SCREEN URINE NEGATIVE (NEGATIVE); *COCAINE SCREEN URINE NEGATIVE (NEGATIVE); METHADONE URINE SCREEN NEGATIVE (NEGATIVE)
[2021-01-18 17:55] LABS: OPIATES URINE SCREEN PRESUMTIVE POSITIVE (NEGATIVE)
[2021-01-18 17:56] LABS: PHENCYCLIDINE URINE SCREEN NEGATIVE (NEGATIVE)
[2021-01-18 18:02] LABS: CANNABINOID URINE SCREEN NEGATIVE (NEGATIVE)
[2021-01-18 18:03] LABS: CLARITY URINE CLOUDY (CLEAR); COLOR URINE YELLOW (YELLOW); KETONES URINE NEGATIVE (NEGATIVE); LEUKOCYTE ESTERASE URINE NEGATIVE (NEGATIVE); NITRITE URINE NEGATIVE (NEGATIVE); OCCULT BLOOD URINE TRACE (NEGATIVE); PH URINE 5.5 (4.5-8.0); PROTEIN URINE NEGATIVE (NEGATIVE); SPECIFIC GRAVITY URINE 1.006 (1.005-1.030); UROBILINOGEN URINE 0.2 E.U./dL (0.2-1.0)
[2021-01-18] MEDS ORDERED: MORPHINE SULFATE 4 MG/ML CPJ (NOT FOR IM USE) IV ONE (18:15)
[2021-01-18] MEDS ORDERED: ONDANSETRON HCL 4MG/2ML INJ IV ONE (18:15)
[2021-01-18 19:50] VITALS: BP 128/70
[2021-01-18] MEDS ORDERED: OMEP20CA14 MT (20:31)
== END 2021-01-18 21:00 | disposition home or self-care (01) ==
LOC: ER 14:47
DX: R07.89 Other chest pain (principal); G89.29 Other chronic pain; R10.9 Unspecified abdominal pain; K62.5 Hemorrhage of anus and rectum; I10 Essential (primary) hypertension; E78.00 Pure hypercholesterolemia, unspecified; Z87.81 Personal history of (healed) traumatic fracture; Z85.9 Personal history of malignant neoplasm, unspecified; Z90.710 Acquired absence of both cervix and uterus; Z96.659 Presence of unspecified artificial knee joint
CPT/HCPCS: 36415; 71045; 74176; 80053; 80305; 80320; 81003; 82962; 83690; 84484; 85025; 85610; 86850; 86900; 86901; 93005; 96361; 96374; 96375; 99285; C9113; J2270; J2405; J7030; G0480

== ENCOUNTER 2022-01-12 06:24 | Emergency (ER) | payer MEDICARE, MEDICAID ==
[~2022-01-12] VITALS: Ht 157.5 cm; Wt 37.5 kg
[~2022-01-12 06:24] MED LIST changes: +OMEP20CA14 MT
[2022-01-12] MEDS ORDERED: MORPHINE SULFATE 4 MG/ML CPJ (NOT FOR IM USE) IV STA (06:54)
[2022-01-12] MEDS ORDERED: MORPHINE SULFATE 4 MG/ML CPJ (NOT FOR IM USE) IV SCH (09:55)
[2022-01-12 11:13] LABS: BASOPHILS % 0.7 % (0.0-2.0); EOSINOPHILS % 0.3 % (0.0-5.0); HEMATOCRIT. 36.4 % (36.0-48.0); HEMOGLOBIN. 12.1 g/dL (12.0-16.0); LYMPHOCYTES % 13.7 % (20.0-50.0); MEAN CORPUSCULAR HEMOGLOBIN 35.8 pg (28.0-32.0); MEAN CORPUSCULAR VOLUME 107.7 fL (81.0-99.0); MEAN PLATELET VOLUME 7.3 fl (7.4-10.4); MONOCYTES % 6.4 % (2.0-8.0); NEUTROPHILS % 78.9 % (40.0-76.0); PLATELET 288 x1000/uL (130-400); RED BLOOD CELL COUNT 3.38 mill/uL (4.2-5.4); RED CELL DISTRIBUTION WIDTH 15.7 % (11.6-14.6)
[2022-01-12 11:24] LABS: CHLORIDE 108 mEq/L (98-107)
[2022-01-12] MEDS ORDERED: DOCUSATE SODIUM 100MG CAPSULE PO PRN (13:30)
[2022-01-12] MEDS ORDERED: ENOXAPARIN 40MG/0.4ML SYR SUBCUT SCH (13:30)
[2022-01-12] MEDS ORDERED: NITROGLYCERIN 0.4MG TABLET SL SL PRN (13:30)
[2022-01-12] MEDS ORDERED: GUAIFENESIN 200MG/10ML SUGAR FREE UDC PO PRN (13:30)
[2022-01-12] MEDS ORDERED: MAGNESIUM/ALUMINUM HYDROXIDE/SIMETHICONE 30ML UDC PO PRN (13:30)
[2022-01-12] MEDS ORDERED: IPRATROPIUM/ALBUTEROL 0.5-3(2.5)MG/3ML NEB NEB PRN (13:30)
[2022-01-12] MEDS ORDERED: KETOROLAC 15MG/ML VIAL IV PRN (13:30)
[2022-01-12] MEDS ORDERED: ONDANSETRON HCL 4MG/2ML INJ IV PRN (13:30)
[2022-01-12] MEDS ORDERED: ZOLPIDEM TARTRATE 5MG TABLET PO PRN (13:30)
[2022-01-12] MEDS ORDERED: ACETAMINOPHEN 325MG TABLET PO PRN ×2 (13:30)
[2022-01-12] MEDS ORDERED: CLONIDINE 0.1MG TABLET PO PRN (13:30)
[2022-01-12] MEDS ORDERED: ENOXAPARIN 30MG/0.3ML SYR SUBCUT SCH (14:00)
[2022-01-12] MEDS ORDERED: NITROGLYCERIN OINT 1GM/INCH UDPKT TD SCH (14:00)
[2022-01-12 14:29] LABS: ETHANOL BLOOD < 10 mg/dL; HDL CHOLESTEROL 133 mg/dL (40-59); LDL CHOLESTEROL 87 mg/dL (5-100); T4 FREE 0.76 ng/dL (0.76-1.46); TOTAL IRON BINDING CAPACITY 366 ug/dL (250-450)
[2022-01-12 14:45] LABS: VITAMIN B12 SERUM 347 pg/mL (211-911)
[2022-01-12 14:55] LABS: FOLIC ACID (FOLATE) SERUM > 20.00 ng/mL (>5.38)
[2022-01-12] MEDS ORDERED: PANTOPRAZOLE SODIUM 40 MG/VIAL IV SCH (15:00)
[2022-01-12 15:15] VITALS: BP 134/84
[2022-01-12] MEDS ORDERED: ATORVASTATIN CALCIUM 40MG TABLET PO SCH (21:00)
[2022-01-13] MEDS ORDERED: ASPIRIN 325MG EC TABLET PO SCH (09:00)
== END 2022-01-12 18:34 | disposition left against medical advice (07) ==
LOC: ER 06:24 → EDBEDREQ 12:04 → CANBEDREQ 16:26 → ER 18:34
DX: R07.89 Other chest pain (principal); I11.0 Hypertensive heart disease with heart failure; I50.30 Unspecified diastolic (congestive) heart failure; E78.00 Pure hypercholesterolemia, unspecified; I25.2 Old myocardial infarction; I25.10 Atherosclerotic heart disease of native coronary artery without angina pectoris; Z85.9 Personal history of malignant neoplasm, unspecified; Z96.649 Presence of unspecified artificial hip joint; Z96.659 Presence of unspecified artificial knee joint; Z90.710 Acquired absence of both cervix and uterus; Z88.5 Allergy status to narcotic agent; Z87.81 Personal history of (healed) traumatic fracture
CPT/HCPCS: 36415; 36573; 71045; 74176; 80053; 80061; 80320; 82607; 82746; 83036; 83540; 83550; 83690; 83880; 84439; 84443; 85025; 86850; 86900; 86901; 93970; 96374; 96375; 99285; C1725; J2270; J2405; J1650; J1885; G0480

== ENCOUNTER 2022-01-13 08:43 | Inpatient (IN) | payer MEDICARE, MEDICAID ==
[~2022-01-13] VITALS: Ht 157.5 cm; Wt 36.5 kg
[2022-01-13] MEDS ORDERED: ONDANSETRON HCL 4MG/2ML INJ IV ONE (11:15)
[2022-01-13] MEDS ORDERED: MORPHINE SULFATE 4 MG/ML CPJ (NOT FOR IM USE) IV ONE (11:15)
[2022-01-13 12:29] LABS: BASOPHILS % 0.6 % (0.0-2.0); EOSINOPHILS % 0.3 % (0.0-5.0); HEMATOCRIT. 34.2 % (36.0-48.0); HEMOGLOBIN. 11.5 g/dL (12.0-16.0); LYMPHOCYTES % 13.9 % (20.0-50.0); MEAN CORPUSCULAR HEMOGLOBIN 36.1 pg (28.0-32.0); MEAN CORPUSCULAR VOLUME 107.5 fL (81.0-99.0); MEAN PLATELET VOLUME 7.1 fl (7.4-10.4); NEUTROPHILS % 77.2 % (40.0-76.0); PLATELET 267 x1000/uL (130-400); RED BLOOD CELL COUNT 3.18 mill/uL (4.2-5.4); RED CELL DISTRIBUTION WIDTH 15.5 % (11.6-14.6)
[2022-01-13 12:39] LABS: PARTIAL THROMBOPLASTIN TIME 25.4 sec (23.4-31.0); PROTHROMBIN TIME 10.4 sec (9.6-11.0)
[2022-01-13 12:52] LABS: CHLORIDE 102 mEq/L (98-107)
[2022-01-13] MEDS ORDERED: ONDANSETRON 4MG ODT PO ONE (13:45)
[2022-01-13] MEDS ORDERED: MORPHINE SULFATE 4 MG/ML CPJ (NOT FOR IM USE) IV NR (14:15)
[2022-01-13] MEDS ORDERED: IOHEXOL-350 100 ML BOTTLE ONE (16:32)
[2022-01-13] MEDS ORDERED: NA PHOS,M-B/NA PHOS,DI-BA ENEMA 118ML PR PRN (20:15)
[2022-01-13] MEDS ORDERED: CLONIDINE 0.1MG TABLET PO PRN (20:15)
[2022-01-13] MEDS ORDERED: NITROGLYCERIN 0.4MG TABLET SL SL PRN (20:15)
[2022-01-13] MEDS ORDERED: MAGNESIUM/ALUMINUM HYDROXIDE/SIMETHICONE 30ML UDC PO PRN (20:15)
[2022-01-13] MEDS ORDERED: KETOROLAC 15MG/ML VIAL IV PRN (20:15)
[2022-01-13] MEDS ORDERED: DOCUSATE SODIUM 100MG CAPSULE PO PRN (20:15)
[2022-01-13] MEDS ORDERED: ONDANSETRON HCL 4MG/2ML INJ IV PRN (20:15)
[2022-01-13] MEDS ORDERED: GUAIFENESIN 200MG/10ML SUGAR FREE UDC PO PRN (20:15)
[2022-01-13] MEDS ORDERED: ACETAMINOPHEN 325MG TABLET PO PRN ×2 (20:15)
[2022-01-13] MEDS ORDERED: IPRATROPIUM/ALBUTEROL 0.5-3(2.5)MG/3ML NEB NEB PRN (20:15)
[2022-01-13] MEDS ORDERED: ENOXAPARIN 30MG/0.3ML SYR SUBCUT SCH (21:00)
[2022-01-13] MEDS ORDERED: ZOLPIDEM TARTRATE 5MG TABLET PO PRN (21:00)
[2022-01-13] MEDS ORDERED: ATORVASTATIN CALCIUM 40MG TABLET PO SCH (21:00)
[2022-01-13 22:00] LABS: ETHANOL BLOOD < 10 mg/dL; TOTAL IRON BINDING CAPACITY 331 ug/dL (250-450)
[2022-01-13] MEDS: FAMOTIDINE 20MG TABLET PO SCH (22:39)
[2022-01-13] MEDS: NITROGLYCERIN OINT 1GM/INCH UDPKT TD SCH (22:52)
[2022-01-14 02:00] VITALS: BP 154/83
[2022-01-14 04:42] LABS: CREATINE KINASE 66 IU/L (26-192); CREATINE KINASE MB FRACTION < 1.0 ng/mL (0.5-3.6)
[2022-01-14] MEDS: NITROGLYCERIN OINT 1GM/INCH UDPKT TD SCH (05:11)
[2022-01-14 05:29] VITALS: BP 81/99
[2022-01-14] MEDS: FAMOTIDINE 20MG TABLET PO SCH (08:49)
[2022-01-14] MEDS ORDERED: ASPIRIN 325MG EC TABLET PO SCH (09:00)
[2022-01-14 10:02] LABS: BASOPHILS % 0.4 % (0.0-2.0); EOSINOPHILS % 0.1 % (0.0-5.0); HEMATOCRIT. 31.5 % (36.0-48.0); HEMOGLOBIN. 10.4 g/dL (12.0-16.0); MEAN CORPUSCULAR HEMOGLOBIN 35.8 pg (28.0-32.0); MEAN CORPUSCULAR VOLUME 108.7 fL (81.0-99.0); MEAN PLATELET VOLUME 7.7 fl (7.4-10.4); MONOCYTES % 6.5 % (2.0-8.0); PLATELET 259 x1000/uL (130-400); RED BLOOD CELL COUNT 2.89 mill/uL (4.2-5.4); RED CELL DISTRIBUTION WIDTH 15.1 % (11.6-14.6)
[2022-01-14 10:13] LABS: CHLORIDE 101 mEq/L (98-107)
[2022-01-14 10:23] LABS: CREATINE KINASE 59 IU/L (26-192); CREATINE KINASE MB FRACTION < 1.0 ng/mL (0.5-3.6); PHOSPHORUS 4.4 mg/dL (2.5-4.9)
== END 2022-01-14 11:21 | disposition left against medical advice (07) | DRG 205 ==
LOC: ER 08:43 → EDBEDREQ 16:01 → 6WST 18:13 → EDBEDREQ 18:14 → ENRESERV 18:41 → CANRESERV 18:42 → ENRESERV 18:42 → MICUSO 23:51 → 6WST 01-14 00:10
PROVIDERS: ADMIT Internal Medicine; ATTEND Internal Medicine
DX: M94.0 Chondrocostal junction syndrome [Tietze] (principal); I50.31 Acute diastolic (congestive) heart failure; I25.2 Old myocardial infarction; I11.0 Hypertensive heart disease with heart failure; E78.5 Hyperlipidemia, unspecified; J44.9 Chronic obstructive pulmonary disease, unspecified; I25.10 Atherosclerotic heart disease of native coronary artery without angina pectoris; E78.00 Pure hypercholesterolemia, unspecified; Z88.6 Allergy status to analgesic agent; Z85.41 Personal history of malignant neoplasm of cervix uteri; Z87.81 Personal history of (healed) traumatic fracture; Z90.710 Acquired absence of both cervix and uterus; Z96.649 Presence of unspecified artificial hip joint; Z96.659 Presence of unspecified artificial knee joint; Z87.01 Personal history of pneumonia (recurrent); Z53.29 Procedure and treatment not carried out because of patient's decision for other reasons
CPT/HCPCS: 36415; 36573; 71045; 74174; 74176; 80053; 80061; 80320; 82550; 82553; 82607; 82746; 83036; 83540; 83550; 83605; 83735; 83880; 84100; 84439; 84443; 84484; 85025; 86850; 86900; 93005; 93970; 96374; 96375; 99285; C1725; J1650; J1885; J2270; J2405; Q0162; Q9967; G0480

== ENCOUNTER 2022-09-24 19:17 | Inpatient (IN) | payer MEDICARE, MEDICAID ==
[~2022-09-24] VITALS: Ht 157.5 cm; Wt 37.0 kg
[2022-09-24] MEDS ORDERED: NITROGLYCERIN 0.4MG TABLET SL SL PRN (21:15)
[2022-09-24] MEDS ORDERED: MORPHINE SULFATE 4 MG/ML CPJ (NOT FOR IM USE) IV ONE (21:15)
[2022-09-25] MEDS ORDERED: MORPHINE SULFATE 4 MG/ML CPJ (NOT FOR IM USE) IV NR (00:30)
[2022-09-25 01:18] LABS: BASOPHILS % 0.5 % (0.0-2.0); EOSINOPHILS % 1.9 % (0.0-5.0); HEMATOCRIT. 31.8 % (36.0-48.0); HEMOGLOBIN. 10.6 g/dL (12.0-16.0); LYMPHOCYTES % 17.5 % (20.0-50.0); MEAN CORPUSCULAR HEMOGLOBIN 35.5 pg (28.0-32.0); MEAN CORPUSCULAR VOLUME 106.4 fL (81.0-99.0); MEAN PLATELET VOLUME 9.1 fl (7.4-10.4); MONOCYTES % 10.7 % (2.0-8.0); NEUTROPHILS % 69.4 % (40.0-76.0); PLATELET 307 x1000/uL (130-400); RED BLOOD CELL COUNT 2.98 mill/uL (4.2-5.4); RED CELL DISTRIBUTION WIDTH 16.3 % (11.6-14.6)
[2022-09-25 01:28] LABS: CHLORIDE 102 mEq/L (98-107)
[2022-09-25 01:42] LABS: CLARITY URINE CLEAR (CLEAR); COLOR URINE YELLOW (YELLOW); KETONES URINE NEGATIVE (NEGATIVE); LEUKOCYTE ESTERASE URINE TRACE (NEGATIVE); NITRITE URINE NEGATIVE (NEGATIVE); OCCULT BLOOD URINE NEGATIVE (NEGATIVE); PH URINE 6.5 (4.5-8.0); PROTEIN URINE NEGATIVE (NEGATIVE); SPECIFIC GRAVITY URINE 1.021 (1.005-1.030)
[2022-09-25] MEDS ORDERED: MORPHINE SULFATE 4 MG/ML CPJ (NOT FOR IM USE) IV ONE (02:45)
[2022-09-25] MEDS: CETIRIZINE 10MG TABLET PO SCH ×2 (02:45→06:05)
[2022-09-25 08:57] VITALS: BP 133/76
[2022-09-25] MEDS ORDERED: ASPIRIN 81MG EC TABLET PO SCH (10:30)
[2022-09-25] MEDS ORDERED: REGADENOSON 0.4 MG/5 ML IV ONE (10:30)
[2022-09-25 11:21] VITALS: BP 110/72
[2022-09-25] MEDS ORDERED: ENOXAPARIN 30MG/0.3ML SYR SUBCUT SCH (12:00)
[2022-09-25] MEDS ORDERED: ATORVASTATIN CALCIUM 20MG TABLET PO SCH (21:00)
== END 2022-09-25 12:00 | disposition left against medical advice (07) | DRG 206 ==
LOC: ER 19:17 → EDBEDREQTM 09-25 02:22 → EDBEDREQ 09-25 02:22 → ENRESERV 09-25 07:23 → 7WST 09-25 08:56
PROVIDERS: ADMIT Internal Medicine; ATTEND Internal Medicine
DX: M94.0 Chondrocostal junction syndrome [Tietze] (principal); I11.0 Hypertensive heart disease with heart failure; D64.9 Anemia, unspecified; E78.00 Pure hypercholesterolemia, unspecified; E87.6 Hypokalemia; I50.9 Heart failure, unspecified; E78.5 Hyperlipidemia, unspecified; Z88.8 Allergy status to other drugs, medicaments and biological substances; Z79.899 Other long term (current) drug therapy; Z90.710 Acquired absence of both cervix and uterus; Z53.29 Procedure and treatment not carried out because of patient's decision for other reasons
CPT/HCPCS: 36415; 71045; 80053; 81003; 82962; 83605; 83880; 84484; 85025; 93005; 99285; C1893; J2270

== ENCOUNTER 2022-10-27 17:27 | Emergency (ER) | payer MEDICARE, MEDICAID ==
[~2022-10-27] VITALS: Ht 167.6 cm; Wt 79.0 kg
[2022-10-27 17:28] VITALS: O2SAT 98
[2022-10-27 18:08] LABS: BASOPHILS % 0.6 % (0.0-2.0); EOSINOPHILS % 1.1 % (0.0-5.0); HEMATOCRIT. 33.1 % (36.0-48.0); HEMOGLOBIN. 11.1 g/dL (12.0-16.0); LYMPHOCYTES % 38.7 % (20.0-50.0); MEAN CORPUSCULAR HEMOGLOBIN 35.1 pg (28.0-32.0); MEAN CORPUSCULAR VOLUME 104.9 fL (81.0-99.0); MEAN PLATELET VOLUME 7.7 fl (7.4-10.4); MONOCYTES % 9.4 % (2.0-8.0); NEUTROPHILS % 50.2 % (40.0-76.0); PLATELET 222 x1000/uL (130-400); RED BLOOD CELL COUNT 3.15 mill/uL (4.2-5.4); RED CELL DISTRIBUTION WIDTH 14.7 % (11.6-14.6)
[2022-10-27 18:16] LABS: CHLORIDE 106 mEq/L (98-107)
[2022-10-27 22:44] VITALS: BP 104/57; PULSE 63; RESP 18
[2022-10-28] MEDS ORDERED: ACETAMINOPHEN 325MG TABLET PO ONE (00:45)
[2022-10-28] MEDS ORDERED: ACETAMINOPHEN 325MG TABLET PO NR (01:00)
== END 2022-10-28 01:31 | disposition left against medical advice (07) ==
LOC: ER 17:27 → EDBEDREQ 10-28 01:21 → EDBEDREQTM 10-28 01:21 → ER 10-28 01:31 → CANBEDREQ 10-28 01:41
DX: R07.89 Other chest pain (principal); E78.00 Pure hypercholesterolemia, unspecified; I10 Essential (primary) hypertension; I25.2 Old myocardial infarction; Z87.01 Personal history of pneumonia (recurrent); Z90.710 Acquired absence of both cervix and uterus; Z79.899 Other long term (current) drug therapy
CPT/HCPCS: 36415; 71045; 80053; 84484; 85025; 93005; 99285

== ENCOUNTER 2023-12-20 15:33 | Emergency (ER) | payer MEDICARE, MEDICAID ==
[~2023-12-20] VITALS: Ht 170.2 cm; Wt 66.0 kg
[2023-12-20 15:37] VITALS: TEMP 99; O2SAT 95
[2023-12-20 16:43] LABS: BASOPHILS % 0.6 % (0.0-2.0); DIFFERENTIAL COMMENT 0; EOSINOPHILS % 0.9 % (0.0-5.0); HEMATOCRIT. 30.9 % (36.0-48.0); HEMOGLOBIN. 10.1 g/dL (12.0-16.0); LYMPHOCYTES % 20.5 % (20.0-50.0); MEAN CORPUSCULAR HGB CONC 32.7 g/dL (31.0-37.0); MEAN CORPUSCULAR VOLUME 106.8 fL (81.0-99.0); MEAN PLATELET VOLUME 7.2 fl (7.4-10.4); MONOCYTES % 9.7 % (2.0-8.0); NEUTROPHILS % 68.3 % (40.0-76.0); PLATELET 212 x1000/uL (130-400); RED CELL DISTRIBUTION WIDTH 14.6 % (11.6-14.6); WHITE BLOOD COUNT 2.9 x1000/uL (4.5-11.0)
[2023-12-20 16:49] LABS: CHLORIDE 104 mEq/L (98-107); POTASSIUM 4.1 mEq/L (3.5-5.1); SODIUM 135 mEq/L (136-145)
[2023-12-20 16:50] LABS: CALCIUM 9.5 mg/dL (8.7-10.4); CARBON DIOXIDE 29 mEq/L (21-32)
[2023-12-20 16:55] LABS: CREATININE 0.6 mg/dL (0.6-1.0); GLUCOSE 106 mg/dL (70-105); UREA NITROGEN BLOOD 11 mg/dL (9-23)
[2023-12-20 16:56] LABS: TROPONIN I HIGH SENSITIVITY < 4 ng/L (3.0-34)
[2023-12-20 18:05] VITALS: BP 110/70; PULSE 79; RESP 22
[2023-12-20 20:03] LABS: TROPONIN I HIGH SENSITIVITY 4 ng/L (3.0-34)
== END 2023-12-20 20:44 | disposition home or self-care (01) ==
LOC: ER 15:33
DX: R07.89 Other chest pain (principal); I50.9 Heart failure, unspecified; E78.00 Pure hypercholesterolemia, unspecified; I11.0 Hypertensive heart disease with heart failure; I25.2 Old myocardial infarction; F19.90 Other psychoactive substance use, unspecified, uncomplicated; Z98.890 Other specified postprocedural states; Z90.710 Acquired absence of both cervix and uterus; Z96.653 Presence of artificial knee joint, bilateral; Z85.9 Personal history of malignant neoplasm, unspecified
CPT/HCPCS: 36415; 71045; 80048; 83880; 84484; 85025; 93005; 99285